=== PATIENT | male | born 1965 | race Caucasian/White ===

== ENCOUNTER → 2020-04-28 09:48 | Outpatient (CLI) | payer OTHER, MEDICAID, SELFPAY ==
--- NOTE | 2020-04-28 10:13 | DI.RAD.S_ITS ---
PROCEDURE: XR CHEST 2V INDICATIONS: R sided wheezing, SOB TECHNIQUE: 2 views of the chest were acquired. COMPARISON: [facility], CR, XR CHEST 1VW (PORTABLE), 03/28/2016, 14:31. FINDINGS: Surgical changes and devices: None. Lungs and pleura: Mild pleural thickening along the minor fissure bilaterally. Lungs are otherwise clear. There is a linear lucency along the right hemidiaphragm. No pleural effusions or pneumothorax. Mediastinum: Mediastinal contours are normal. Heart size is normal. Bones and chest wall: No suspicious bony abnormalities. Soft tissues appear unremarkable. IMPRESSION: 1. Lucency along the right hemidiaphragm, uncertain clinical significance. If clinically indicated, chest CT may be helpful. 2. Mild pleural thickening along the minor fissure. No acute infiltrate or consolidation. Dictated by: Tiara Atkinson M.D. on 04/28/2020 at 10:29 Approved by: Tiara Atkinson M.D. on 04/28/2020 at 10:32
[2020-04-28 10:16] LABS: COVID19 -Nasal RAPID Negative (Negative)
== END ==
LOC: LAB 10:13 → RAD 10:29
PROVIDERS: Referring Provider Nurse Practitioner; Visit Provider Nurse Practitioner
DX: R06.02 Shortness of breath (principal); R06.2 Wheezing; Z20.822 Contact with and (suspected) exposure to COVID-19
CPT/HCPCS: 71046; 87635

== ENCOUNTER → 2021-10-18 10:42 | Outpatient (CLI) | payer OTHER, MEDICAID, SELFPAY ==
--- NOTE | 2021-10-18 10:47 | DI.RAD.S_ITS ---
PROCEDURE: XR RIBS BI 3V INDICATIONS: RIB PAIN TECHNIQUE: 2 views of the left and right ribs were acquired. COMPARISON: Chest x-ray two view, 04/28/2020. FINDINGS: Surgical changes and devices: None. Bones and chest wall: There are mildly displaced left inferior rib fractures involving the posterior lateral aspect of the left 10th and 11th ribs. No displaced right rib fracture. No suspicious bony lesions. Overlying soft tissues appear unremarkable. Lungs and pleura: The visualized lung appears clear. No pleural effusions or pneumothorax are visible. IMPRESSION: 1. Mildly displaced left 10th and 11th rib fractures of uncertain chronicity. 2. No displaced right rib fractures. Dictated by: Tiara Atkinson M.D. on 10/18/2021 at 17:32 Approved by: Tiara Atkinson M.D. on 10/18/2021 at 17:36
[2021-10-18 11:22] LABS: Add Manual Diff / Slide Review NO; Basophils Absolute Auto 100 /uL (0-100); Basophils Percent Auto 0.6 % (0-2); Eosinophils Absolute Auto 0 /uL (0-450); Eosinophils Percent Auto 0.5 % (2-4); Hematocrit 39.4 % (41-53); Hemoglobin 13.5 g/dL (13.5-17.5); Lymphocytes Absolute Auto 1300 /uL (1100-4500); Mean Corpuscular HGB Conc 34.1 % (30-36); Mean Corpuscular Hemoglobin 32.5 PG (26-34); Mean Corpuscular Volume 95.2 fL (80-100); Monocytes Absolute Auto 1500 /uL (0-900); Monocytes Percent Auto 16.9 % (3-14); Neutrophils Absolute Auto 6200 /uL (1500-7000); Platelet Count 306 X10^3/uL (150-400); Red Blood Cell Count 4.14 X10^6/uL (4.5-5.9); Red Cell Distribution Width 17.3 % (11.6-14.8); White Blood Cell Count 9.1 X10^3/uL (4.5-11.0)
[2021-10-18 11:44] LABS: Alanine Aminotransferase 49 IU/L (<50); Albumin 4.2 g/dL (3.5-5.0); Albumin Globulin Ratio 1.4 (1.0-2.8); Alkaline Phosphatase 102 U/L (38-126); Aspartate Aminotransferase 36 IU/L (17-59); BUN Creatinine Ratio 22.4 (6-22); Bilirubin Total 0.6 mg/dL (0.2-1.3); Blood Urea Nitrogen 17 mg/dL (9-20); Calcium 9.3 mg/dL (8.4-10.2); Carbon Dioxide 34 mmol/L (22-32); Chloride 97 mmol/L (98-107); Estimated Glomerular Filt Rate > 60 mL/min (>60); Globulin 3.1 g/dL (1.7-4.1); Glucose 120 mg/dL (70-100); HEMOLYSIS < 15 (0-50); Potassium 3.4 mmol/L (3.4-5.1); Sodium 136 mmol/L (137-145); Total Protein 7.3 g/dL (6.3-8.2)
== END ==
PROVIDERS: Referring Provider Physician Assistant; Visit Provider Physician Assistant
DX: R07.81 Pleurodynia (principal); R05.1 Acute cough; Z71.41 Alcohol abuse counseling and surveillance of alcoholic; S22.42XA Multiple fractures of ribs, left side, initial encounter for closed fracture
CPT/HCPCS: 36415; 71111; 80053; 85025

== ENCOUNTER → 2021-11-04 16:18 | Outpatient (CLI) | payer OTHER, MEDICAID, SELFPAY ==
[2021-11-04 17:01] LABS: Alanine Aminotransferase 17 IU/L (<50); Albumin 4.5 g/dL (3.5-5.0); Albumin Globulin Ratio 1.3 (1.0-2.8); Alkaline Phosphatase 104 U/L (38-126); Aspartate Aminotransferase 21 IU/L (17-59); Bilirubin Total 0.4 mg/dL (0.2-1.3); Bilirubin Unconjugated 0.2 mg/dL (0.0-1.1); Globulin 3.4 g/dL (1.7-4.1); HEMOLYSIS < 15 (0-50); Total Protein 7.9 g/dL (6.3-8.2)
== END ==
PROVIDERS: PCP Physician Assistant; Referring Provider Physician Assistant; Visit Provider Physician Assistant
DX: Z71.41 Alcohol abuse counseling and surveillance of alcoholic (principal)
CPT/HCPCS: 36415; 80076

== ENCOUNTER 2021-12-05 15:18 | Emergency (ER) | payer OTHER, MEDICAID, SELFPAY ==
[2021-12-05] VITALS (15 sets, daily range): BP systolic 179–226; BP diastolic 88–107; PULSE 95–118; RESP 26–37; TEMP 36.4; O2SAT 93–99
--- NOTE | 2021-12-05 15:18 | DI.CT.S_ITS ---
PROCEDURE: CT HEAD/BRAIN WO CON INDICATIONS: syncope seizure TECHNIQUE: Noncontrast 4.5 mm thick angled axial sections acquired from the foramen magnum to the vertex, with coronal and sagittal reformats. For radiation dose reduction, the following was used: automated exposure control, adjustment of mA and/or kV according to patient size. COMPARISON: None. FINDINGS: Image quality: Excellent. CSF spaces: Basal cisterns are patent. No extra-axial fluid collections. The ventricles are symmetric in size and shape. Brain: No intracranial bleeds or masses. There are old lacunar infarcts in basal ganglia bilaterally. Old or late subacute infarct in the right parietal white matter. There is mild cerebral volume loss for age, with resultant ventricular and sulcal prominence. There are moderate periventricular and deep white matter chronic small vessel ischemic changes. There is intracranial internal carotid artery atherosclerosis. Skull and face: Calvarium and visualized facial bones appear intact, without suspicious lesions. There is a small left frontal subscalp hematoma. Sinuses: Visualized sinuses and mastoids are clear. IMPRESSION: 1. No acute intracranial abnormalities. 2. Old lacunar infarcts in basal ganglia bilaterally. Suspect old or late subacute lacunar infarct in the right parietal white matter. If clinically indicated, MRI with and without contrast is recommended for follow-up evaluation. 3. Mild cerebral volume loss and moderate chronic microvascular ischemic changes. 4. Small right frontal subscalp hematoma. Dictated by: Tiara Atkinson M.D. on 12/05/2021 at 15:46 Approved by: Tiara Atkinson M.D. on 12/05/2021 at 15:50
--- NOTE | 2021-12-05 15:18 | DI.CT.S_ITS ---
PROCEDURE: CT FACIAL BONES WO CON INDICATIONS: syncope seizure TECHNIQUE: Noncontrast 2.5 mm thick axial images acquired from the mandible through the frontal sinuses, with coronal and sagittal reformatting. For radiation dose reduction, the following was used: automated exposure control, adjustment of mA and/or kV according to patient size. COMPARISON: [facility], CT, CT HEAD/BRAIN WO CON, 12/05/2021, 15:26. FINDINGS: Image quality: There are motion artifacts. Bones and teeth: Nondisplaced nasal bone fractures are seen bilaterally with mild displacement. There is mildly displaced fracture of the nasal septum. The mandible appears intact. There is bilateral anterior subluxation of the mandibular condyles at the temporomandibular joint. Orbital betancourt are intact. Sinus betancourt show no fracture or deformity. Zygomatic arches are intact. Pterygoid plates are intact. Visualized portions of the skull base and auditory canals are intact. Sinuses: Mild bilateral maxillary sinus mucosal thickening. There is a polyp or mucous retention cyst in the left maxillary sinus. Mastoid air cells are aerated. Soft tissues: No edema, masses, or fluid collections. No enlarged lymph nodes. No soft tissue lacerations or debris. Vascular: Visualized vascular structures appear normal in the absence of contrast. Bony vascular foramina and canals are intact. IMPRESSION: 1. Bilateral nasal bone fractures and nasal septum fracture. 2. Mild anterior subluxation of the mandibular condyles bilaterally at the temporomandibular joints. 3. Mild maxillary sinus mucosal thickening. There is a polyp or mucous retention cyst in the left maxillary sinus. Dictated by: Tiara Atkinson M.D. on 12/05/2021 at 15:59 Approved by: Tiara Atkinson M.D. on 12/05/2021 at 16:06
--- NOTE | 2021-12-05 15:18 | DI.CT.S_ITS ---
PROCEDURE: CT CERVICAL SPINE WO CON INDICATIONS: syncope seizure TECHNIQUE: Noncontrast 3 mm thick sections acquired from the skull base to the T4 level. Sagittal and coronal reformats were then constructed. For radiation dose reduction, the following was used: automated exposure control, adjustment of mA and/or kV according to patient size. COMPARISON: None. FINDINGS: Image quality: There are motion artifacts. Bones: No fractures or dislocations. Degenerative disc disease, moderate at C5-C6, mild at C4-C5 and C6-C7. Bilateral facet arthropathy, most pronounced at C3-C4, C4-C5 and C5-C6 on the left. Visualized superior ribs are intact. Soft tissues: Prevertebral soft tissues are normal in thickness. No paravertebral hematomas. No apical pneumothoraces. IMPRESSION: 1. No acute cervical spine fractures. 2. Degenerative disc and facet disease in cervical spine. Dictated by: Tiara Atkinson M.D. on 12/05/2021 at 15:50 Approved by: Tiara Atkinson M.D. on 12/05/2021 at 15:53
--- NOTE | 2021-12-05 15:20 | DI.RAD.S_ITS ---
PROCEDURE: XR CHEST 1V INDICATIONS: fall TECHNIQUE: One view of the chest was acquired. COMPARISON: [facility], CT, CT CERVICAL SPINE WO CON, 12/05/2021, 15:26. [facility], CR, XR CHEST 2V, 04/28/2020, 10:19. FINDINGS: Surgical changes and devices: None. Lungs and pleura: Lower lung volumes. Lungs appear clear. No pleural effusions or pneumothorax. Mediastinum: Mediastinal contours appear normal. Heart size is normal. Bones and chest wall: No suspicious bony lesions. Overlying soft tissues appear unremarkable. IMPRESSION: No acute cardiopulmonary abnormality identified. Dictated by: Blake Thakkar M.D. on 12/05/2021 at 16:06 Approved by: Blake Thakkar M.D. on 12/05/2021 at 16:08
--- NOTE | 2021-12-05 15:36 | ED_ITS ---
HPI - Syncope General Chief Complaint: Altered Mental Status Stated Complaint: Found down on sidewalk Time Seen by Provider: 12/05/21 15:18 Source: EMS Mode of arrival: EMS Limitations: altered mental status History of Present Illness HPI narrative: Patient is a 56-year-old male history of alcohol abuse hypertension tobacco abuse presenting today after syncopal episode. He apparently walked into his PCPs office for possibly an appointment and then walked out they saw him fall flat on his face. Possible seizure activity. Medics report that he is very confused he has multiple abrasions on his head and his face. Unable to follow commands. Not able to provide any history. Related Data Home Medications Medication Instructions Recorded Confirmed lisinopril PO 04/28/20 04/28/20 velaxafine PO 04/28/20 04/28/20 Previous Rx's Medication Instructions Recorded albuterol sulfate 90 mcg/actuation 2 puff inhalation Q4-6H PRN 04/28/20 aerosol inhaler shortness of breath or wheezing #8.5 grams inhalational spacing device (Avinash #1 ea 04/28/20 Aerosol [place] Enhancer spacer) chlordiazepoxide HCl 25 mg capsule 25 mg PO Q12H #12 caps 12/05/21 diazepam 5 mg tablet (Valium) 5 mg PO BID PRN alcohol withdrawal 12/06/21 #10 tabs ondansetron 4 mg disintegrating 4 mg PO Q8H PRN nausea and 12/06/21 tablet vomiting #10 tabs potassium chloride 20 mEq 20 meq PO DAILY 10 days #10 tabs 12/06/21 tablet,extended release(part/cryst) (Klor-Con M) Allergies Allergy/AdvReac Type Severity Reaction Status Date / Time No Known Drug Allergies Allergy Verified 12/05/21 15:29 Review of Systems Review of Systems ROS Unobtainable: Unobtainable due to medical condition Patient History Medical History No significant medical problems Social History Smoking Status: Current every day smoker Smoking Status: Current every day smoker alcohol intake frequency: 3 or more drinks per day Alcohol type: hard liquor Exam Initial Vital Signs Initial Vital Signs: Vital Signs Pulse Rate 118 H 12/05/21 15:23 Respiratory Rate 36 H 12/05/21 15:23 Pulse Oximetry 97 12/05/21 15:23 Oxygen Delivery Method 12/05/21 15:23 GENERAL: Alert confused agitated 56-year-old male HEENT: Head multiple forehead abrasions dry blood all over no obvious tongue laceration EOMI NECK: Supple, full range of motion, no step-offs, nontender on vertebrae CARDIOVASCULAR: Regular rate and rhythm without murmurs, rubs or gallops. RESPIRATORY: Breath sounds equal bilaterally, no wheezes rales or rhonchi. No crepitations, no subcutaneous air, chest is nontender, no signs of trauma ABDOMEN: Soft, nontender. Normoactive bowel sounds all 4 quadrants. No gua rding or rebound. EXTREMITIES: Normal range of motion, no clubbing or edema. Right upper extremity: Within normal limits Left upper extremity: Within normal limits Right lower extremity: Within normal limits Left lower extremity:Within normal limits NEUROLOGICAL: Cranial nerves II through XII grossly intact. Normal gait and speech. SKIN: Facial abrasions Course Orders Ordered: Discontinued Medications Sodium Chloride (Normal Saline 0.9%) 1,000 mls @ 150 mls/hr IV CONT KUMAR Last Infusion: 12/05/21 17:49 Dose: 0 mls/hr Documented By: Admin: 12/05/21 16:04 Dose: 150 mls/hr Documented By: KENIA Phenobarbital (Phenobarbital 65 Mg/Ml Vial) 260 mg IV NOW ONE Stop: 12/05/21 17:18 Last Admin: 12/05/21 17:55 Dose: 260 mg Documented By: KENIA Vital Signs Vital signs: Vital Signs - 8 hr 12/05/21 15:27 12/05/21 15:23 12/05/21 15:36 Temperature 97.6 F Pulse Rate 118 H 114 H Respiratory Rate 36 H 32 H Blood Pressure Pulse Oximetry 97 Oxygen Delivery Method Room Air 12/05/21 15:39 12/05/21 15:40 12/05/21 15:40 Temperature Pulse Rate 112 H 110 H Respiratory Rate 35 H 37 H Blood Pressure 226/107 H Pulse Oximetry 99 93 Oxygen Delivery Method Room Air 12/05/21 16:00 12/05/21 16:00 12/05/21 16:30 Temperature Pulse Rate 109 H Respiratory Rate 34 H Blood Pressure 199/100 H 215/99 H Pulse Oximetry 98 Oxygen Delivery Method 12/05/21 16:30 12/05/21 17:00 12/05/21 17:01 Temperature Pulse Rate 103 H 111 H 115 H Respiratory Rate 33 H 33 H 31 H Blood Pressure Pulse Oximetry Oxygen Delivery Method 12/05/21 17:01 12/05/21 17:30 12/05/21 17:31 Temperature Pulse Rate 104 H Respiratory Rate 27 H Blood Pressure 184/88 H 209/93 H Pulse Oximetry Oxygen Delivery Method 12/05/21 17:31 12/05/21 18:00 12/05/21 18:01 Temperature Pulse Rate 106 H 107 H Respiratory Rate 30 H 27 H Blood Pressure 179/105 H Pulse Oximetry Oxygen Delivery Method 12/05/21 18:01 Temperature Pulse Rate 107 H Respiratory Rate 28 H Blood Pressure Pulse Oximetry Oxygen Delivery Method MDM - Syncope Lab Data Result diagrams: 12/05/21 15:48 12/05/21 15:48 Labs: Lab Results 12/05/21 12/05/21 12/05/21 Range/Units 15:48 15:48 15:48 WBC 13.4 H (4.5-11.0) X10^3/uL RBC 4.12 L (4.5-5.9) X10^6/uL Hgb 13.4 L (13.5-17.5) g/dL Hct 39.2 L (41-53) % MCV 95.2 (80-100) fL MCH 32.4 (26-34) PG MCHC 34.0 (30-36) % RDW 16.1 H (11.6-14.8) % Plt Count 359 (150-400) X10^3/uL Neut % (Auto) 82.0 H (50-75) % Lymph % (Auto) 11.0 L (25-40) % [place] % (Auto) 6.3 (3-14) % Eos % (Auto) 0.1 L (2-4) % Baso % (Auto) 0.6 (0-2) % Neut # (Auto) 64968 H (5577-6982) /uL Lymph # (Auto) 1500 (5339-6491) /uL [place] # (Auto) 900 (0-900) /uL Eos # (Auto) 0 (0-450) /uL Baso # (Auto) 100 (0-100) /uL PT 12.1 (10.1-12.7) SECONDS INR 1.1 (0.9-1.3) Sodium (137-145) mmol/L Potassium (3.4-5.1) mmol/L Chloride (98-107) mmol/L Carbon Dioxide (22-32) mmol/L BUN (9-20) mg/dL Creatinine (0.66-1.25) mg/dL Estimated GFR (>60) mL/min BUN/Creatinine Ratio (6-22) Glucose (70-100) mg/dL Lactate (0.7-2.1) mmol/L Calcium (8.4-10.2) mg/dL Total Bilirubin (0.2-1.3) mg/dL AST (17-59) IU/L ALT (<50) IU/L Alkaline Phosphatase (38-126) U/L Total Creatine Kinase 237 H (55-170) U/L CK-MB (CK-2) 2.48 H (<2.37) ng/mL CK-MB (CK-2) Rel Index 1.0 L (1.5-5.0) % Troponin I < 0.012 (0.01-0.034) ng/mL Total Protein (6.3-8.2) g/dL Albumin (3.5-5.0) g/dL Globulin (1.7-4.1) g/dL Albumin/Globulin Ratio (1.0-2.8) Lipase 190 (23-300) U/L Prolactin (3.7-17.9) ng/mL Salicylates (<20) mg/dL U Opiates 300ng/mL cut (Negative) Ur Oxycodone Screen (Negative) Urine Methadone Screen (Negative) Acetaminophen (10-30) ug/mL Ur Barbiturates Screen (Negative) U Tricyclic Antidepress (Negative) Ur Phencyclidine Scrn (Negative) Ur Amphetamines Screen (Negative) U Methamphetamines Scrn (Negative) Ur MDMA Scrn (Ecstasy) (Negative) U Benzodiazepines Scrn (Negative) Urine Cocaine Screen (Negative) U Marijuana (THC) Screen (Negative) Ethyl Alcohol ( - 10) mg/dL 12/05/21 12/05/21 12/05/21 Range/Units 15:48 15:48 15:48 WBC (4.5-11.0) X10^3/uL RBC (4.5-5.9) X10^6/uL Hgb (13.5-17.5) g/dL Hct (41-53) % MCV (80-100) fL MCH (26-34) PG MCHC (30-36) % RDW (11.6-14.8) % Plt Count (150-400) X10^3/uL Neut % (Auto) (50-75) % Lymph % (Auto) (25-40) % [place] % (Auto) (3-14) % Eos % (Auto) (2-4) % Baso % (Auto) (0-2) % Neut # (Auto) (0603-2445) /uL Lymph # (Auto) (7690-0022) /uL [place] # (Auto) (0-900) /uL Eos # (Auto) (0-450) /uL Baso # (Auto) (0-100) /uL PT (10.1-12.7) SECONDS INR (0.9-1.3) Sodium 136 L (137-145) mmol/L Potassium 3.3 L (3.4-5.1) mmol/L Chloride 96 L (98-107) mmol/L Carbon Dioxide 26 (22-32) mmol/L BUN 14 (9-20) mg/dL Creatinine 0.66 (0.66-1.25) mg/dL Estimated GFR > 60 (>60) mL/min BUN/Creatinine Ratio 21.2 (6-22) Glucose 154 H (70-100) mg/dL Lactate 6.6 H* (0.7-2.1) mmol/L Calcium 8.8 (8.4-10.2) mg/dL Total Bilirubin 1.1 (0.2-1.3) mg/dL AST 31 (17-59) IU/L ALT 30 (<50) IU/L Alkaline Phosphatase 104 (38-126) U/L Total Creatine Kinase (55-170) U/L CK-MB (CK-2) (<2.37) ng/mL CK-MB (CK-2) Rel Index (1.5-5.0) % Troponin I (0.01-0.034) ng/mL Total Protein 7.7 (6.3-8.2) g/dL Albumin 4.4 (3.5-5.0) g/dL Globulin 3.3 (1.7-4.1) g/dL Albumin/Globulin Ratio 1.3 (1.0-2.8) Lipase (23-300) U/L Prolactin 40.6 H (3.7-17.9) ng/mL Salicylates < 1.0 (<20) mg/dL U Opiates 300ng/mL cut (Negative) Ur Oxycodone Screen (Negative) Urine Methadone Screen (Negative) Acetaminophen < 10 (10-30) ug/mL Ur Barbiturates Screen (Negative) U Tricyclic Antidepress (Negative) Ur Phencyclidine Scrn (Negative) Ur Amphetamines Screen (Negative) U Methamphetamines Scrn (Negative) Ur MDMA Scrn (Ecstasy) (Negative) U Benzodiazepines Scrn (Negative) Urine Cocaine Screen (Negative) U Marijuana (THC) Screen (Negative) Ethyl Alcohol < 10 ( - 10) mg/dL 12/05/21 12/05/21 Range/Units 16:58 17:45 WBC (4.5-11.0) X10^3/uL RBC (4.5-5.9) X10^6/uL Hgb (13.5-17.5) g/dL Hct (41-53) % MCV (80-100) fL MCH (26-34) PG MCHC (30-36) % RDW (11.6-14.8) % Plt Count (150-400) X10^3/uL Neut % (Auto) (50-75) % Lymph % (Auto) (25-40) % [place] % (Auto) (3-14) % Eos % (Auto) (2-4) % Baso % (Auto) (0-2) % Neut # (Auto) (0183-0015) /uL Lymph # (Auto) (9819-5828) /uL [place] # (Auto) (0-900) /uL Eos # (Auto) (0-450) /uL Baso # (Auto) (0-100) /uL PT (10.1-12.7) SECONDS INR (0.9-1.3) Sodium (137-145) mmol/L Potassium (3.4-5.1) mmol/L Chloride (98-107) mmol/L Carbon Dioxide (22-32) mmol/L BUN (9-20) mg/dL Creatinine (0.66-1.25) mg/dL Estimated GFR (>60) mL/min BUN/Creatinine Ratio (6-22) Glucose (70-100) mg/dL Lactate 2.7 H (0.7-2.1) mmol/L Calcium (8.4-10.2) mg/dL Total Bilirubin (0.2-1.3) mg/dL AST (17-59) IU/L ALT (<50) IU/L Alkaline Phosphatase (38-126) U/L Total Creatine Kinase (55-170) U/L CK-MB (CK-2) (<2.37) ng/mL CK-MB (CK-2) Rel Index (1.5-5.0) % Troponin I (0.01-0.034) ng/mL Total Protein (6.3-8.2) g/dL Albumin (3.5-5.0) g/dL Globulin (1.7-4.1) g/dL Albumin/Globulin Ratio (1.0-2.8) Lipase (23-300) U/L Prolactin (3.7-17.9) ng/mL Salicylates (<20) mg/dL U Opiates 300ng/mL cut Negative (Negative) Ur Oxycodone Screen Negative (Negative) Urine Methadone Screen Negative (Negative) Acetaminophen (10-30) ug/mL Ur Barbiturates Screen Negative (Negative) U Tricyclic Antidepress Negative (Negative) Ur Phencyclidine Scrn Negative (Negative) Ur Amphetamines Screen Negative (Negative) U Methamphetamines Scrn Negative (Negative) Ur MDMA Scrn (Ecstasy) Negative (Negative) U Benzodiazepines Scrn Negative (Negative) Urine Cocaine Screen Negative (Negative) U Marijuana (THC) Screen Negative (Negative) Ethyl Alcohol ( - 10) mg/dL Imaging Data CT scan - head: Radiologist's Impression: ?Mk Ortez Sharad MR#: [id number] : 1965 Acct:[id number] Age/Sex: 56 / M Date of Service: 12/05/21 Loc: ED Accession Number: [id number] ?? Procedure: CT head/brain wo con Ordering Provider: Megan Alonso D.O. PROCEDURE:? CT HEAD/BRAIN WO CON ? INDICATIONS:? syncope seizure ? TECHNIQUE:? Noncontrast 4.5 mm thick angled axial sections acquired from the foramen magnum to the vertex, with coronal and sagittal reformats.? For radiation dose reduction, the following was used:? automated exposure control, adjustment of mA and/or kV according to patient size.? ? COMPARISON:? None. ? FINDINGS:? Image quality:? Excellent.? ? CSF spaces:? Basal cisterns are patent.? No extra-axial fluid collections.? The ventricles are symmetric in size and shape.? ? Brain:? No intracranial bleeds or masses.? There are old lacunar infarcts in basal ganglia bilaterally.? Old or late subacute infarct in the right parietal white matter.? There is mild cerebral volume loss for age, with resultant ventricular and sulcal prominence.? There are moderate periventricular and deep white matter chronic small vessel ischemic changes.? There is intracranial internal carotid artery atherosclerosis.? ? ? Skull and face:? Calvarium and visualized facial bones appear intact, without suspicious lesions.? There is a small left frontal subscalp hematoma. ? Sinuses:? Visualized sinuses and mastoids are clear.? ? IMPRESSION:? ? 1. No acute intracranial abnormalities. ? 2. Old lacunar infarcts in basal ganglia bilaterally.? Suspect old or late subacute lacunar infarct in the right parietal white matter. If clinically indicated, MRI with and without contrast is recommended for follow-up evaluation.? ? 3.? Mild cerebral volume loss and moderate chronic microvascular ischemic changes. ? 4. Small right frontal subscalp hematoma.? Dictated by: Tiara Atkinson M.D. on 12/05/2021 at 15:46 ? ? CT facial: Radiologist's Impression: CT Scan Report Signed Patient: Mk Ortez MR#: [id number] : 1965 Acct:[id number] Age/Sex: 56 / M Date of Service: 12/05/21 Loc: ED Accession Number: [id number] ?? Procedure: CT facial bones wo con Ordering Provider: Megan Alonso D.O. PROCEDURE:? CT FACIAL BONES WO CON ? INDICATIONS:? syncope seizure ? TECHNIQUE:? Noncontrast 2.5 mm thick axial images acquired from the mandible through the frontal sinuses, with coronal and sagittal reformatting.? For radiation dose reduction, the following was used:? automated exposure control, adjustment of mA and/or kV according to patient size.? ? COMPARISON:? [facility], CT, CT HEAD/BRAIN WO CON, 12/05/2021, 15:26. ? FINDINGS:? Image quality:? There are motion artifacts.? ? Bones and teeth:? Nondisplaced nasal bone fractures are seen bilaterally with mild displacement.? There is mildly displaced fracture of the nasal septum. ? The mandible appears intact.? There is bilateral anterior subluxation of the mandibular condyles at the temporomandibular joint.? ? Orbital betancourt are intact.? Sinus betancourt show no fracture or deformity.? Zygomatic arches are intact.? Pterygoid plates are intact.? Visualized portions of the skull base and auditory canals are intact.? ? Sinuses:? Mild bilateral maxillary sinus mucosal thickening.? There is a polyp or mucous retention cyst in the left maxillary sinus.? Mastoid air cells are aerated.? ? Soft tissues:? No edema, masses, or fluid collections.? No enlarged lymph nodes.? No soft tissue lacerations or debris.? ? Vascular:? Visualized vascular structures appear normal in the absence of contrast.? Bony vascular foramina and canals are intact.? ? IMPRESSION:? ? 1. Bilateral nasal bone fractures and nasal septum fracture. ? 2. Mild anterior subluxation of the mandibular condyles bilaterally at the temporomandibular joints. ? 3.? Mild maxillary sinus mucosal thickening.? There is a polyp or mucous retention cyst in the left maxillary sinus. ? ? ? Dictated by: Tiara Atkinson M.D. on 12/05/2021 at 15:59 ? CT - cervical spine: Radiologist's Impression: nt: Mk Ortez MR#: [id number] : 1965 Acct:[id number] Age/Sex: 56 / M Date of Service: 12/05/21 Loc: ED Accession Number: [id number] ?? Procedure: CT cervical spine wo con Ordering Provider: Megan Alonso D.O. PROCEDURE:? CT CERVICAL SPINE WO CON ? INDICATIONS:? syncope seizure ? TECHNIQUE:? Noncontrast 3 mm thick sections acquired from the skull base to the T4 level.? Sagittal and coronal reformats were then constructed.? For radiation dose reduction, the following was used:? automated exposure control, adjustment of mA and/or kV according to patient size.? ? COMPARISON:? None. ? FINDINGS:? Image quality:? There are motion artifacts.? ? Bones:? No fractures or dislocations.? Degenerative disc disease, moderate at C5-C6, mild at C4-C5 and C6-C7.? Bilateral facet arthropathy, most pronounced at C3-C4, C4- C5 and C5-C6 on the left.? Visualized superior ribs are intact.? ? Soft tissues:? Prevertebral soft tissues are normal in thickness.? No paravertebral hematomas.? No apical pneumothoraces.? ? ? IMPRESSION:? ? 1. No acute cervical spine fractures. 2. Degenerative disc and facet disease in cervical spine.? Dictated by: Tiara Atkinson M.D. on 12/05/2021 at 15:50? Chest x-ray: Radiologist's Impression: XRay Report Signed Patient: Mk Ortez MR#: [id number] : 1965 Acct:[id number] Age/Sex: 56 / M Date of Service: 12/05/21 Loc: ED Accession Number: [id number] ?? Procedure: XR chest 1V Ordering Provider: Megan Alonso D.O. PROCEDURE:? XR CHEST 1V ? INDICATIONS:? fall ? TECHNIQUE:? One view of the chest was acquired.? ? COMPARISON:? [facility], CT, CT CERVICAL SPINE WO CON, 12/05/2021, 15:26.? [facility], CR, XR CHEST 2V, 04/28/2020, 10:19. ? FINDINGS:? ? Surgical changes and devices:? None.? ? Lungs and pleura:? Lower lung volumes.? Lungs appear clear.? No pleural effusions or pneumothorax.? ? Mediastinum:? Mediastinal contours appear normal.? Heart size is normal.? ? Bones and chest wall:? No suspicious bony lesions.? Overlying soft tissues appear unremarkable.? ? IMPRESSION:? No acute cardiopulmonary abnormality identified. ? ? ? Dictated by: Blake Thakkar M.D. on 12/05/2021 at 16:06 ? ? ECG Data Interpretation: Sinus tachycardia rate 108 NJ interval 126 QRS [address] changes MDM Narrative Medical decision making narrative: A syncopal episode. He is more awake and alert. He states he has not had and alcohol and 3 days trying to quit for work. He says he drinks a large bottle of whiskey over 2 days. Scroll lactate is quite elevated his lactic acid is also elevated. He was obviously postictal when he arrived and is now better. He is shaking as well. I recommended admission for him so that he does not have any alcohol withdrawal seizures along with monitoring for any a arrhythmias. At this time he is declining admission. He says that he has things he needs to do. We discussed how he can decrease his alcohol at home more safely. And he is given librium, he states he wants to stop and must or he will loose his job. The patient is clinically sober, free from distracting injury, appears to have intact insight, judgment and reason. Does not meet criteria for involuntary hospitalization. Patient has the capacity to make decisions. The patient is als o not under any duress to leave the hospital. In this scenario, it would be battery to subject the patient to treatment against his/her will. I have voiced my concerns for the patient's health given that a full evaluation and treatment had not occurred. I have discussed the need for continued evaluation to determine if there symptoms are caused by a condition that present risk of or morbidity. Risk including but not limited to , permanent disability, prolonged hospitalization, prolonged illness, were discussed. I tried offering alternative options in hopes that the patient might be amenable to partial evaluation and treatment which would be medically beneficial to the patient, though the patient declined my options and insisted on leaving. Because I have been unable to convince the patient to stay I answered all of their questions about the condition and ask them to return to the ED as soon as possible to complete their evaluation, especially if their symptoms worsen or do not improve. I emphasized that leaving against medical advice did not preclude returning here for further evaluation. I asked the patient to return if they change their mind about the further evaluation and treatment. I strongly encouraged the patient to return to this emergency department or any emergency department at any time, particularly with worsening symptoms. Discharge Plan Departure Patient Disposition: Left Against Medical Advice Clinical Impression: Alcohol withdrawal seizure Instructions: Alcohol Withdrawal Activity Restrictions/Additional Instructions: YOU ARE LEAVING AGAINST MEDICAL ADVICE IT WAS STRONGLY RECOMMENDED THAT YOU STAY IN THE HOSPITAL FOR SEIZURE PRECAUTION *You have been diagnosed with ALCOHOL WITHDRAWAL SEIZURE *What to do: *Continue to take medications as directed Librium 25 mg 3 times a day for 2 days, 1 tablet twice a day for 2 days, 1 tablet once a day for 2 days --> SENT TO [facility] *Follow up with your primary care provider in 2-3 days or call [phone] *Return to ER if you should have recurrent seizure, tremors hallucinations or any new, worsening or concerning symptoms Prescriptions: New chlordiazepoxide HCl 25 mg capsule 25 mg PO Q12H Qty: 12 0RF Rx Instructions: 1 tablet 3 times a day for 2 days, 1 tablet twice a day for 2 days, 1 tablet once a day for 2 days. No Action lisinopril PO velaxafine PO albuterol sulfate 90 mcg/actuation HFA aerosol inhaler 2 puff inhalation Q4-6H PRN (Reason: shortness of breath or wheezing) Qty: 8.5 0RF (DME) Avinash Aerosol [place] Enhancer Spacer See Rx Instructions .ROUTE .MEDSUPPLY Qty: 1 0RF Rx Instructions: As directed diazepam [Valium] 5 mg tablet 5 mg PO BID PRN (Reason: alcohol withdrawal) Qty: 10 0RF potassium chloride [Klor-Con M20] 20 mEq tablet,ER particles/crystals 20 meq PO DAILY 10 Days Qty: 10 0RF Rx Instructions: Take with food and water ondansetron 4 mg tablet,disintegrating 4 mg PO Q8H PRN (Reason: nausea and vomiting) Qty: 10 0RF Referrals: Rachelle Nielsen PA-C [Primary Care Provider] - Stand Alone Forms: Against Medical Advice
[2021-12-05 16:01] LABS: Add Manual Diff / Slide Review NO; Basophils Absolute Auto 100 /uL (0-100); Basophils Percent Auto 0.6 % (0-2); Eosinophils Absolute Auto 0 /uL (0-450); Eosinophils Percent Auto 0.1 % (2-4); Hematocrit 39.2 % (41-53); Hemoglobin 13.4 g/dL (13.5-17.5); Lymphocytes Absolute Auto 1500 /uL (1100-4500); Mean Corpuscular Hemoglobin 32.4 PG (26-34); Mean Corpuscular Volume 95.2 fL (80-100); Monocytes Absolute Auto 900 /uL (0-900); Monocytes Percent Auto 6.3 % (3-14); Neutrophils Absolute Auto 11000 /uL (1500-7000); Platelet Count 359 X10^3/uL (150-400); Red Blood Cell Count 4.12 X10^6/uL (4.5-5.9); Red Cell Distribution Width 16.1 % (11.6-14.8); White Blood Cell Count 13.4 X10^3/uL (4.5-11.0)
[2021-12-05] MEDS: SODIUM CHLORIDE 0.9% 1,000 ML 150 ML IV (16:04)
[2021-12-05 16:05] LABS: INR 1.1 (0.9-1.3); Prothrombin Time 12.1 SECONDS (10.1-12.7)
[2021-12-05 16:10] LABS: Acetaminophen < 10 ug/mL (10-30); Albumin 4.4 g/dL (3.5-5.0); Albumin Globulin Ratio 1.3 (1.0-2.8); Alkaline Phosphatase 104 U/L (38-126); Aspartate Aminotransferase 31 IU/L (17-59); BUN Creatinine Ratio 21.2 (6-22); Bilirubin Total 1.1 mg/dL (0.2-1.3); Blood Urea Nitrogen 14 mg/dL (9-20); Calcium 8.8 mg/dL (8.4-10.2); Carbon Dioxide 26 mmol/L (22-32); Chloride 96 mmol/L (98-107); Creatine Kinase 237 U/L (55-170); Estimated Glomerular Filt Rate > 60 mL/min (>60); Ethanol (ETOH) < 10 mg/dL; Globulin 3.3 g/dL (1.7-4.1); Glucose 154 mg/dL (70-100); HEMOLYSIS < 15 (0-50); Lipase 190 U/L (23-300); Potassium 3.3 mmol/L (3.4-5.1); Salicylate < 1.0 mg/dL (<20); Sodium 136 mmol/L (137-145); Total Protein 7.7 g/dL (6.3-8.2)
[2021-12-05 16:12] LABS: Lactate (Lactic Acid) 6.6 mmol/L (0.7-2.1)
[2021-12-05 16:17] LABS: Alanine Aminotransferase 30 IU/L (<50)
[2021-12-05 16:21] LABS: Troponin I < 0.012 ng/mL (0.01-0.034)
[2021-12-05 16:26] LABS: Creatine Kinase MB 2.48 ng/mL (<2.37); Prolactin 40.6 ng/mL (3.7-17.9)
[2021-12-05 17:21] LABS: UR Morphine/Opiate cutoff 300 Negative (Negative); Ur Creatinine Normal (Normal); Ur Specific Gravity Normal (Normal); Urine Amphetamines Negative (Negative); Urine Barbiturates Negative (Negative); Urine Benzodiazepines Negative (Negative); Urine Cocaine Negative (Negative); Urine MDMA Negative (Negative); Urine Methadone Negative (Negative); Urine Methamphetamines Negative (Negative); Urine Oxycodone Negative (Negative); Urine Phencyclidine Negative (Negative); Urine Tetrahydrocannabinol Negative (Negative); Urine Tricyclic Antidepressant Negative (Negative); Urine pH Normal (Normal)
[2021-12-05 17:55] LABS: Reflexed Lactate in 2 Hours Y
[2021-12-05] MEDS: PHENobarbital 65 MG/ML VIAL 260 MG IV (17:55)
--- NOTE | 2021-12-05 18:10 | DI.RAD.S_ITS ---
PROCEDURE: XR HIP W PEL IF DONE LT 2V INDICATIONS: Fall TECHNIQUE: AP pelvis with lateral view(s) of the left hip(s). COMPARISON: [facility], CR, XR FEMUR 2+ VIEWS LEFT, 08/08/2017, 11:13. FINDINGS: Bones: No fractures identified. No dislocation. Pelvic ring appears intact. No suspicious bony lesions. 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 Soft tissues: The visualized bowel gas pattern is normal. No suspicious soft tissue calcifications. Barraza catheter. IMPRESSION: No fracture identified. If concern for occult fracture recommend CT bony pelvis. Dictated by: Blake Thakkar M.D. on 12/05/2021 at 19:08 Approved by: Blake Thakkar M.D. on 12/05/2021 at 19:10
[2021-12-05 18:19] LABS: Lactate 2HR (Lactic Acid Rflx) 2.7 mmol/L (0.7-2.1)
--- NOTE | 2021-12-05 18:31 | CM.SWNOTE ---
FLOOR STEWARD/STEWARDESS Assessment FLOOR STEWARD/STEWARDESS - Home Extension Agent Assessment FLOOR STEWARD/STEWARDESS/Home Extension Agent Assessment Time Spent with Patient Start date 12/05/21 Visit Start Time 17:55 End date 12/05/21 Visit End Time 18:05 Total time Care Management spent on 10 minutes patient visit-in minutes Substance Abuse Screening Include Onset, Duration, Intensity Presenting Problem Patient presents to ED via EMS found facedown on sidewalk after syncopal episode. Patient presents with multiple abrasions on face. Patient endorses he last drank 2-3 days ago and drank a big bottle of whiskey over the course of 3 days. Precipitating Event(s) Patient endorses he has been struggling with ETOH use and hx of sobriety within the last 7 years. Patient endorses that he does not want his boss to know about his drinking. Patient Strengths Patient endorses he has quit drinking cold turkey twice before and sustained sobriety before. Current Behavioral Health Provider(s) None reported Include Facility, Provider, Ph. # Family Hx of Behavioral Abuse None reported Rehab Facilities? ((Date(s), Location(s) Patient endorses hx of going ) to AA at [facility] with the [facility], patient denies that he intends to go back. History of Withdrawal? Seizures? Patient denies hx of seizures and states he has a hx of cold sweats, patient endorses current cold sweats. Longest Period of Sobriety 3 years Psychosocial information & Support Patient is 56 y/o male who Systems resides in [place]. Patient denies family supports but states his boss is someone who worries about him. School/Work Patient endorses he works at [employer] (a [employer]). Legal Concerns Legal Matters - Outstanding Issues None reported Mental Status Orientation (Person/Place/Time) A/Ox4 Stated Mood weak Affect (Congruent with Mood?) euthymic, full range, congruent with mood. Thought Content - Specify/Describe None reported Obsessions, Delusions, Hallucinations Thought Processes (Byuqime-Oqfuudrj-Efbp fairly coherent, focused on Oefdpcda-Migliegi-Ajxtozwapr- wanting to leave. Ciywtqbaxnqfln-Liwritv-Zqrksvjpowmq- Thought Blocking) Speech (Fprpnp-Rpsr-Wbycrvl-Rapid-Soft- normal, slightly slurred Loud-Pressured) Motor (Jgpzxt-Fyqyybxlv-Cvhc-Other) normal Insight (Jbrt-Bbeg-Tucl/Limited) fair/poor Judgement (Wgxq-Fckn-Mxaw/Limited) fair/poor Impulse Control (Adequate-Impaired) adequate Memory (Czetnhstw-Awswmu-Vqepde, intact, not formally assessed Impaired-Intact) Concentration (Intact-Impaired) intact Attention (Intact-Impaired) intact Behavior (Appropriate-Inappropriate) appropriate Additional Comment patient presents as calm and communicative. Intervention Intervention FLOOR STEWARD/STEWARDESS enters room to meet with patient. Patient endorses his desire to leave this hospital to get his belongings and smoke a cigarette. Patient endorses his last drink was 2-3 days ago when he drank a bottle of whiskey over the course of three days. Patient endorses hx of cold sweat withdrawals but denies any previous hx of seizures. Per ED examination and medical assessment patient presents as postical after a syncope episode, most likely caused by ETOH withdrawals. Per ED provider, it is recommended that patient remain in hospital for further medical observation and treatment. Patient continues to endorses to this FLOOR STEWARD/STEWARDESS that he wants to go home. Patient denies agreement to stay in hospital but agrees to treatment as needed in the ED. FLOOR STEWARD/STEWARDESS offers [facility] resources and detox information and patient denies need for any resources. Patient endorses he has been able to quit alcohol cold turkey on two occasions in the last 7 years and be sober for 2 and 3 years at a time. Patient endorses hx of utilizing AA but denies plans to utilize them due to his experience there. It is the opinion of this FLOOR STEWARD/STEWARDESS that patient would benefit from medical detox but patient denies to pursue this tx. FLOOR STEWARD/STEWARDESS to meet with patient again upon next ED encounter to discuss appropriate treatment options in further detail and assess patient safety. FLOOR STEWARD/STEWARDESS reviews the above with ED provider Dr. Alonso who indicates understanding and agreement. Patient plans to leave AMA after tx in ED. Plan RA Plan Patient endorses his plan to leave the ED against medical advice DEBO Garber
== END 2021-12-05 19:08 | disposition left against medical advice (07) ==
PROVIDERS: Emergency Provider Emergency Medicine; PCP Physician Assistant
DX: R56.9 Unspecified convulsions (principal); F10.939 Alcohol use, unspecified with withdrawal, unspecified
CPT/HCPCS: 36415; 70450; 70486; 71045; 72125; 73502; 80053; 80305; 80320; 80329; 82550; 82553; 83605; 83690; 84146; 84484; 85025; 85610; 93005; 93010; 96361; 96374; 99284; G0480; J2560

== ENCOUNTER 2021-12-06 14:32 | Emergency (ER) | payer OTHER, MEDICAID, SELFPAY ==
[2021-12-06] VITALS (8 sets, daily range): BP systolic 146–166; BP diastolic 71–86; PULSE 79–110; RESP 23–34; TEMP 36.9; O2SAT 95–99
[2021-12-06] MEDS: SODIUM CHLORIDE 0.9% 1,000 ML 1000 ML IV ×2 (15:15→18:36)
[2021-12-06] MEDS: PHENobarbital 65 MG/ML VIAL 260 MG IV (15:15)
[2021-12-06 15:18] LABS: Add Manual Diff / Slide Review NO; Basophils Absolute Auto 100 /uL (0-100); Basophils Percent Auto 0.5 % (0-2); Eosinophils Absolute Auto 0 /uL (0-450); Eosinophils Percent Auto 0.1 % (2-4); Hematocrit 36.3 % (41-53); Hemoglobin 12.6 g/dL (13.5-17.5); Lymphocytes Absolute Auto 800 /uL (1100-4500); Lymphocytes Percent Auto 6.8 % (25-40); Mean Corpuscular HGB Conc 34.9 % (30-36); Mean Corpuscular Hemoglobin 32.9 PG (26-34); Mean Corpuscular Volume 94.4 fL (80-100); Monocytes Absolute Auto 800 /uL (0-900); Monocytes Percent Auto 6.6 % (3-14); Neutrophils Absolute Auto 10600 /uL (1500-7000); Platelet Count 350 X10^3/uL (150-400); Red Blood Cell Count 3.84 X10^6/uL (4.5-5.9); Red Cell Distribution Width 16.7 % (11.6-14.8); White Blood Cell Count 12.3 X10^3/uL (4.5-11.0)
[2021-12-06 15:31] LABS: Albumin 4.2 g/dL (3.5-5.0); Albumin Globulin Ratio 1.3 (1.0-2.8); Alkaline Phosphatase 104 U/L (38-126); Aspartate Aminotransferase 42 IU/L (17-59); BUN Creatinine Ratio 12.7 (6-22); Bilirubin Total 1.1 mg/dL (0.2-1.3); Blood Urea Nitrogen 15 mg/dL (9-20); Calcium 8.8 mg/dL (8.4-10.2); Carbon Dioxide 25 mmol/L (22-32); Chloride 95 mmol/L (98-107); Estimated Glomerular Filt Rate > 60 mL/min (>60); Globulin 3.2 g/dL (1.7-4.1); Glucose 161 mg/dL (70-100); HEMOLYSIS < 15 (0-50); Potassium 3.1 mmol/L (3.4-5.1); Sodium 131 mmol/L (137-145); Total Protein 7.4 g/dL (6.3-8.2)
[2021-12-06 15:38] LABS: Alanine Aminotransferase 30 IU/L (<50)
[2021-12-06 16:04] LABS: Lipase 173 U/L (23-300)
[2021-12-06 16:05] LABS: Magnesium 1.4 mg/dL (1.6-2.3)
--- NOTE | 2021-12-06 16:15 | ED_ITS ---
HPI - Anxiety <Nazia Potts, [facility] - Last Filed: 12/07/21 07:20> General Chief Complaint: Toxicology Problem Stated Complaint: ETOH SEIZURE, FALL, HIT HEAD, ON BLOOD THINNERS, Time Seen by Provider: 12/06/21 15:02 Source: patient Mode of arrival: Wheelchair History of Present Illness HPI narrative: Patient is a 56 year male with history alcohol abuse, hypertension, tobacco use and was seen in the emergency department yesterday for alcohol withdrawal after a seizure was witnessed standard. Patient reports that today is day 4 since his last drink of alcohol, yesterday in the emergency department he received phenobarbital 260 mg IV x1, he left Against Medical Advice after he was told that it would be good to admit him to the hospital. He returns today saying that he knows this was a bad idea and he just wanted a cigarette and to go to work today and make some money. 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 He has a small right frontal sub scalp hematoma without bleeding. CT of his face shows bilateral nasal bone fractures, nasal septum fracture,, mild anterior subluxation of the mandibular condyles bilaterally at the temporomandibular joints, and mild maxillary sinus mucosal thickening. Patient reports that his left hip still hurts pretty bad today, states that it feels dislocated. Related Data Home Medications Medication Instructions Recorded Confirmed lisinopril PO 04/28/20 04/28/20 velaxafine PO 04/28/20 04/28/20 Previous Rx's Medication Instructions Recorded albuterol sulfate 90 mcg/actuation 2 puff inhalation Q4-6H PRN 04/28/20 aerosol inhaler shortness of breath or wheezing #8.5 grams inhalational spacing device (Avinash #1 ea 04/28/20 Aerosol [place] Enhancer spacer) chlordiazepoxide HCl 25 mg capsule 25 mg PO Q12H #12 caps 12/05/21 diazepam 5 mg tablet (Valium) 5 mg PO BID PRN alcohol withdrawal 12/06/21 #10 tabs ondansetron 4 mg disintegrating 4 mg PO Q8H PRN nausea and 12/06/21 tablet vomiting #10 tabs potassium chloride 20 mEq 20 meq PO DAILY 10 days #10 tabs 12/06/21 tablet,extended release(part/cryst) (Klor-Con M) Allergies Allergy/AdvReac Type Severity Reaction Status Date / Time No Known Drug Allergies Allergy Verified 12/05/21 15:29 Review of Systems <CARYL Azevedo - Last Filed: 12/07/21 07:20> Review of Systems Narrative: General: denies fever, chills, endorses having tremors and feeling anxious Head/Neck: denies headache, neck pain Eyes: denies visual changes, eye pain Cardio: denies chest pain, palpitations Respiratory: denies shortness of breath, cough GI: denies abdominal pain, nausea, vomiting, or diarrhea : denies dysuria, hematuria or flank pain MSK: denies new joint pain, muscle weakness or swelling Skin: denies rash, itching or new wound, patient has an abrasion on his left forehead Neuro: denies numbness, tingling, dizziness Patient History <CARYL Azevedo - Last Filed: 12/07/21 07:20> Medical History No significant medical problems Social History Smoking Status: Current every day smoker Smoking Status: Current every day smoker alcohol intake frequency: 3 or more drinks per day Alcohol type: hard liquor Substance Use Type: does not use Exam <CARYL Azevedo - Last Filed: 12/07/21 07:20> Narrative Exam Narrative: Independently reviewed vitals signs and nursing notes. General: comfortable, in no acute distress, multiple abrasions on face, tremulous, anxious but calm and cooperative Head: Abrasion to left forehead, symmetrical facial expressions Neck: supple Eyes: equal round and reactive, EOMI, conjunctiva normal without nystagmus Nose: nares patent, no rhinorrhea Mouth/Throat: moist mucus membranes Cardiovascular: Initially, tachycardic rate and regular rhythm, after 1 L of normal saline, his heart rate came down to the 90s and later the 80s, no peripheral edema, warm extremities Respiratory: normal effort, able to speak in complete sentences, no audible wheezing, stridor, or rales. No retractions or tachypnea. GI: abdomen soft, nontender to palpation, nondistended, no masses, no exquisite tenderness with exam, without guarding or rebound. MSK: moves all extremities, neurovascularly intact, no weakness, normal tone, with bilateral upper extremities extended he has tremors in both of his hands, tongue fasciculations, Skin: brisk capillary refill, no rash, no erythema Neuro: normal speech and cognition, A&O x3 Psych: mental status is grossly normal, congruent mood, normal affect, pleasant and cooperative Initial Vital Signs Initial Vital Signs: Vital Signs Temperature 98.4 F 12/06/21 14:50 Pulse Rate 110 H 12/06/21 14:50 Respiratory Rate 26 H 12/06/21 14:50 Pulse Oximetry 99 12/06/21 14:50 Oxygen Delivery Method 12/06/21 14:50 <Alicia Tse MD - Last Filed: 12/11/21 18:01> Initial Vital Signs Initial Vital Signs: Vital Signs Temperature 98.4 F 12/06/21 14:50 Pulse Rate 110 H 12/06/21 14:50 Respiratory Rate 26 H 12/06/21 14:50 Pulse Oximetry 99 12/06/21 14:50 Oxygen Delivery Method 12/06/21 14:50 Course <CARYL Azevedo - Last Filed: 12/07/21 07:20> Orders Ordered: Discontinued Medications Hydrocodone Bitart/Acetaminophen (Hydrocodone/Acet 5/325 Tablet) 1 tab PO NOW ONE Stop: 12/06/21 16:25 Last Admin: 12/06/21 16:32 Dose: 1 tab Documented By: PETER Diazepam (Diazepam 5 Mg Tablet) 10 mg PO NOW ONE Stop: 12/06/21 18:28 Last Admin: 12/06/21 18:37 Dose: 10 mg Documented By: PETER Sodium Chloride (Normal Saline 0.9%) 1,000 mls @ 1,000 mls/hr IV BOLUS ONE Stop: 12/06/21 15:59 Last Infusion: 12/06/21 18:13 Dose: 0 mls/hr Documented By: Admin: 12/06/21 15:15 Dose: 1,000 mls/hr Documented By: PETER Magnesium Sulfate (Magnesium Sulfate) 2 gm in 50 mls @ 50 mls/hr IV NOW ONE Stop: 12/06/21 17:14 Last Infusion: 12/06/21 17:43 Dose: 0 mls/hr Documented By: PETER Co-signed By: ATILIO Admin: 12/06/21 16:24 Dose: 50 mls/hr Documented By: PETER Co-signed By: ATILIO Sodium Chloride (Normal Saline 0.9%) 1,000 mls @ 1,000 mls/hr IV BOLUS ONE Stop: 12/06/21 19:35 Last Infusion: 12/06/21 19:22 Dose: 0 mls/hr Documented By: Admin: 12/06/21 18:36 Dose: 1,000 mls/hr Documented By: PETER Nicotine (Nicotine 21 Mg Patch) 21 mg TOP NOW ONE Stop: 12/06/21 16:21 Last Admin: 12/06/21 16:24 Dose: 21 mg Documented By: PETER Ondansetron HCl (Ondansetron 4 Mg/2 Ml Inj) 4 mg IV Q6HR PRN PRN Reason: Nausea And Vomiting Phenobarbital (Phenobarbital 65 Mg/Ml Vial) 260 mg IV NOW ONE Stop: 12/06/21 15:07 Last Admin: 12/06/21 15:15 Dose: 260 mg Documented By: PETER Potassium Chloride (Potassium Chloride 20 Meq/15 Ml Udc) 40 meq PO NOW ONE Stop: 12/06/21 16:16 Last Admin: 12/06/21 16:23 Dose: 40 meq Documented By: PETER Reevaluation(s) Reevaluation #1: Reassessed patient 1700, tremors in bilateral upper extremities are still present but decreased, patient remains alert and oriented x3, speech is clear, heart rate 90, patient denies any need for additional medication at this time. His magnesium and potassium are being replaced. After 1 L of normal saline Reevaluation #2: Patient reports that he feels much better, his lactate came back critical at 4.1. Patient was given a secondary L of normal saline, he states that he does not feel anxious or tremulous right now, states that he feels much better. Vital Signs Vital signs: Vital Signs - 8 hr 12/06/21 14:50 12/06/21 16:52 12/06/21 17:00 Temperature 98.4 F Pulse Rate 110 H 100 H 88 Respiratory Rate 26 H 34 H 29 H Blood Pressure Pulse Oximetry 99 96 95 Oxygen Delivery Method Room Air 12/06/21 17:01 12/06/21 17:01 12/06/21 17:30 Temperature Pulse Rate 90 Respiratory Rate 30 H Blood Pressure 146/71 H 150/73 H Pulse Oximetry 96 Oxygen Delivery Method 12/06/21 17:30 12/06/21 18:00 12/06/21 18:00 Temperature Pulse Rate 82 79 Respiratory Rate 24 24 Blood Pressure 162/79 H Pulse Oximetry 96 95 Oxygen Delivery Method 12/06/21 18:30 12/06/21 18:30 12/06/21 19:00 Temperature Pulse Rate 79 83 Respiratory Rate 23 23 Blood Pressure 166/86 H Pulse Oximetry 97 96 Oxygen Delivery Method <Alicia Tse MD - Last Filed: 12/11/21 18:01> Orders Ordered: Discontinued Medications Hydrocodone Bitart/Acetaminophen (Hydrocodone/Acet 5/325 Tablet) 1 tab PO NOW ONE Stop: 12/06/21 16:25 Last Admin: 12/06/21 16:32 Dose: 1 tab Documented By: PETER Diazepam (Diazepam 5 Mg Tablet) 10 mg PO NOW ONE Stop: 12/06/21 18:28 Last Admin: 12/06/21 18:37 Dose: 10 mg Documented By: PETER Sodium Chloride (Normal Saline 0.9%) 1,000 mls @ 1,000 mls/hr IV BOLUS ONE Stop: 12/06/21 15:59 Last Infusion: 12/06/21 18:13 Dose: 0 mls/hr Documented By: Admin: 12/06/21 15:15 Dose: 1,000 mls/hr Documented By: PETER Magnesium Sulfate (Magnesium Sulfate) 2 gm in 50 mls @ 50 mls/hr IV NOW ONE Stop: 12/06/21 17:14 Last Infusion: 12/06/21 17:43 Dose: 0 mls/hr Documented By: PETER Co-signed By: ATILIO Admin: 12/06/21 16:24 Dose: 50 mls/hr Documented By: PETER Co-signed By: ATILIO Sodium Chloride (Normal Saline 0.9%) 1,000 mls @ 1,000 mls/hr IV BOLUS ONE Stop: 12/06/21 19:35 Last Infusion: 12/06/21 19:22 Dose: 0 mls/hr Documented By: Admin: 12/06/21 18:36 Dose: 1,000 mls/hr Documented By: PETER Nicotine (Nicotine 21 Mg Patch) 21 mg TOP NOW ONE Stop: 12/06/21 16:21 Last Admin: 12/06/21 16:24 Dose: 21 mg Documented By: PETER Ondansetron HCl (Ondansetron 4 Mg/2 Ml Inj) 4 mg IV Q6HR PRN PRN Reason: Nausea And Vomiting Phenobarbital (Phenobarbital 65 Mg/Ml Vial) 260 mg IV NOW ONE Stop: 12/06/21 15:07 Last Admin: 12/06/21 15:15 Dose: 260 mg Documented By: PETER Potassium Chloride (Potassium Chloride 20 Meq/15 Ml Udc) 40 meq PO NOW ONE Stop: 12/06/21 16:16 Last Admin: 12/06/21 16:23 Dose: 40 meq Documented By: PETER Vital Signs Vital signs: Vital Signs - 8 hr 12/06/21 14:50 12/06/21 16:52 12/06/21 17:00 Temperature 98.4 F Pulse Rate 110 H 100 H 88 Respiratory Rate 26 H 34 H 29 H Blood Pressure Pulse Oximetry 99 96 95 Oxygen Delivery Method Room Air 12/06/21 17:01 12/06/21 17:01 12/06/21 17:30 Temperature Pulse Rate 90 Respiratory Rate 30 H Blood Pressure 146/71 H 150/73 H Pulse Oximetry 96 Oxygen Delivery Method 12/06/21 17:30 12/06/21 18:00 12/06/21 18:00 Temperature Pulse Rate 82 79 Respiratory Rate 24 24 Blood Pressure 162/79 H Pulse Oximetry 96 95 Oxygen Delivery Method 12/06/21 18:30 12/06/21 18:30 12/06/21 19:00 Temperature Pulse Rate 79 83 Respiratory Rate 23 23 Blood Pressure 166/86 H Pulse Oximetry 97 96 Oxygen Delivery Method MDM - Anxiety <CARYL Azevedo - Last Filed: 12/07/21 07:20> Lab Data Result diagrams: 12/06/21 15:05 12/06/21 15:05 Labs: Lab Results 12/06/21 12/06/21 12/06/21 Range/Units 15:05 15:05 15:05 WBC 12.3 H (4.5-11.0) X10^3/uL RBC 3.84 L (4.5-5.9) X10^6/uL Hgb 12.6 L (13.5-17.5) g/dL Hct 36.3 L (41-53) % MCV 94.4 (80-100) fL MCH 32.9 (26-34) PG MCHC 34.9 (30-36) % RDW 16.7 H (11.6-14.8) % Plt Count 350 (150-400) X10^3/uL Neut % (Auto) 86.0 H (50-75) % Lymph % (Auto) 6.8 L (25-40) % [place] % (Auto) 6.6 (3-14) % Eos % (Auto) 0.1 L (2-4) % Baso % (Auto) 0.5 (0-2) % Neut # (Auto) 49098 H (5098-8361) /uL Lymph # (Auto) 800 L (5580-7778) /uL [place] # (Auto) 800 (0-900) /uL Eos # (Auto) 0 (0-450) /uL Baso # (Auto) 100 (0-100) /uL Sodium 131 L (137-145) mmol/L Potassium 3.1 L (3.4-5.1) mmol/L Chloride 95 L (98-107) mmol/L Carbon Dioxide 25 (22-32) mmol/L BUN 15 (9-20) mg/dL Creatinine 1.18 (0.66-1.25) mg/dL Estimated GFR > 60 (>60) mL/min BUN/Creatinine Ratio 12.7 (6-22) Glucose 161 H (70-100) mg/dL Lactate (0.7-2.1) mmol/L Calcium 8.8 (8.4-10.2) mg/dL Magnesium (1.6-2.3) mg/dL Total Bilirubin 1.1 (0.2-1.3) mg/dL AST 42 (17-59) IU/L ALT 30 (<50) IU/L Alkaline Phosphatase 104 (38-126) U/L Total Protein 7.4 (6.3-8.2) g/dL Albumin 4.2 (3.5-5.0) g/dL Globulin 3.2 (1.7-4.1) g/dL Albumin/Globulin Ratio 1.3 (1.0-2.8) Lipase 173 (23-300) U/L Prolactin (3.7-17.9) ng/mL 12/06/21 12/06/21 12/06/21 Range/Units 15:05 15:05 15:05 WBC (4.5-11.0) X10^3/uL RBC (4.5-5.9) X10^6/uL Hgb (13.5-17.5) g/dL Hct (41-53) % MCV (80-100) fL MCH (26-34) PG MCHC (30-36) % RDW (11.6-14.8) % Plt Count (150-400) X10^3/uL Neut % (Auto) (50-75) % Lymph % (Auto) (25-40) % [place] % (Auto) (3-14) % Eos % (Auto) (2-4) % Baso % (Auto) (0-2) % Neut # (Auto) (0928-1089) /uL Lymph # (Auto) (0596-2283) /uL [place] # (Auto) (0-900) /uL Eos # (Auto) (0-450) /uL Baso # (Auto) (0-100) /uL Sodium (137-145) mmol/L Potassium (3.4-5.1) mmol/L Chloride (98-107) mmol/L Carbon Dioxide (22-32) mmol/L BUN (9-20) mg/dL Creatinine (0.66-1.25) mg/dL Estimated GFR (>60) mL/min BUN/Creatinine Ratio (6-22) Glucose (70-100) mg/dL Lactate 4.1 H* (0.7-2.1) mmol/L Calcium (8.4-10.2) mg/dL Magnesium 1.4 L (1.6-2.3) mg/dL Total Bilirubin (0.2-1.3) mg/dL AST (17-59) IU/L ALT (<50) IU/L Alkaline Phosphatase (38-126) U/L Total Protein (6.3-8.2) g/dL Albumin (3.5-5.0) g/dL Globulin (1.7-4.1) g/dL Albumin/Globulin Ratio (1.0-2.8) Lipase (23-300) U/L Prolactin 8.1 (3.7-17.9) ng/mL 12/06/21 Range/Units 19:22 WBC (4.5-11.0) X10^3/uL RBC (4.5-5.9) X10^6/uL Hgb (13.5-17.5) g/dL Hct (41-53) % MCV (80-100) fL MCH (26-34) PG MCHC (30-36) % RDW (11.6-14.8) % Plt Count (150-400) X10^3/uL Neut % (Auto) (50-75) % Lymph % (Auto) (25-40) % [place] % (Auto) (3-14) % Eos % (Auto) (2-4) % Baso % (Auto) (0-2) % Neut # (Auto) (0033-5065) /uL Lymph # (Auto) (4306-9986) /uL [place] # (Auto) (0-900) /uL Eos # (Auto) (0-450) /uL Baso # (Auto) (0-100) /uL Sodium (137-145) mmol/L Potassium (3.4-5.1) mmol/L Chloride (98-107) mmol/L Carbon Dioxide (22-32) mmol/L BUN (9-20) mg/dL Creatinine (0.66-1.25) mg/dL Estimated GFR (>60) mL/min BUN/Creatinine Ratio (6-22) Glucose (70-100) mg/dL Lactate 1.0 (0.7-2.1) mmol/L Calcium (8.4-10.2) mg/dL Magnesium (1.6-2.3) mg/dL Total Bilirubin (0.2-1.3) mg/dL AST (17-59) IU/L ALT (<50) IU/L Alkaline Phosphatase (38-126) U/L Total Protein (6.3-8.2) g/dL Albumin (3.5-5.0) g/dL Globulin (1.7-4.1) g/dL Albumin/Globulin Ratio (1.0-2.8) Lipase (23-300) U/L Prolactin (3.7-17.9) ng/mL Imaging Data Extremity x-ray #1: Radiologist's Impression: PROCEDURE:? XR HIP W PEL IF DONE LT 2V ? INDICATIONS:? Fall ? TECHNIQUE:? AP pelvis with lateral view(s) of the left hip(s).? ? COMPARISON:? [facility], CR, XR FEMUR 2+ VIEWS LEFT, 08/08/2017, 11:13. ? FINDINGS:? ? Bones:? No fractures identified.? No dislocation.? Pelvic ring appears intact.? No suspicious bony lesions.? 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 ? Soft tissues:? The visualized bowel gas pattern is normal.? No suspicious soft tissue calcifications.? Barraza catheter.? ? ? IMPRESSION:? No fracture identified.? ? If concern for occult fracture recommend CT bony pelvis. ? ? ? Dictated by: Blake Thakkar M.D. on 12/05/2021 at 19:08 ? ? Approved by: Blake Thakkar M.D. on 12/05/2021 at 19:10 ? ECG Data Interpretation: EKG independently reviewed by Dr. Tse and reveals sinus tachycardia at 108 bpm with regular axis and intervals. No STEMI, ST segment changes, arrhythmia, or acute ischemic changes. MDM Narrative Medical decision making narrative: This is a 56-year-old male who returns to the emergency department today for evaluation of his alcohol withdrawal symptoms after he had a withdrawal seizure yesterday and was seen in the emergency department but left Against Medical Advice because he wanted to go home and smoke cigarettes. Patient returns today with moderate tremors, stating that he feels anxious, his heart rate is racing, and was concerned about having another seizure. Patient states that he is never had a seizure in the past, yesterday he arrived in the emergency department postictal after witnessed seizure, CT did not show any acute intracranial abnormalities, nasal fracture visualized on facial bones is most likely remote as patient does not have tenderness over his nasal bones and his nares remain patent. He was given 160 mg of phenobarbital which improved patient's tremors and tongue fasciculations, his heart rate came down and he felt more relaxed. He was given a total of 2 L of normal saline for an elevated lactate at 4.1, his recheck was improved and patient had to void twice before discharging home. His magnesium was low at 1.4, he was repleted with 2 g IV, his creatinine was 1.18, potassium was 3.1, sodium 131, he was given 40 mEq of p.o. potassium via solution. Patient's WBC is improving from yesterday, today is 12.3 yesterday was 13.4, hemoglobin of 12.6 and hematocrit of 36.3 which is stable compared with yesterday. Patient appears much better today than he did yesterday, he received a 10 mg dose of Valium prior to discharge. He was discharged with a 10 day prescription of potassium 20 mEq daily, encouraged him to start eating at least 1 healthy meal per day and hydrating with electrolyte fluids like Gatorade and water. I encouraged him to avoid alcohol since he is over 4 days since his last drink he is likely outside of the worst of his alcohol withdrawals. He has not had any seizure activity today. He was discharged home with a prescription of Valium to take as needed for alcohol withdrawal symptoms. He was ambulatory and appeared much more comfortable at time of discharge without significant hip pain. Discussed his findings with the patient and he was re-evaluated multiple times and improved over the course of his visit today and feels safe to discharge home, he understands to go directly to the pharmacy and will come back to the emergency department if he does not feel safe at home. Patient is appropriate and amenable to discharge home. Vital signs are stable on repeat examination is unremarkable. Patient has been informed of results. Patient has been given strict return to ER precautions for any new or worsening symptoms. Patient understands to follow up closely with outpatient providers as instructed. Patient understands plan and agrees to discharge home. All quest ions and concerns answered at this time.. <Alicia Tse MD - Last Filed: 12/11/21 18:01> Lab Data Labs: Lab Results 12/06/21 12/06/21 12/06/21 Range/Units 15:05 15:05 15:05 WBC 12.3 H (4.5-11.0) X10^3/uL RBC 3.84 L (4.5-5.9) X10^6/uL Hgb 12.6 L (13.5-17.5) g/dL Hct 36.3 L (41-53) % MCV 94.4 (80-100) fL MCH 32.9 (26-34) PG MCHC 34.9 (30-36) % RDW 16.7 H (11.6-14.8) % Plt Count 350 (150-400) X10^3/uL Neut % (Auto) 86.0 H (50-75) % Lymph % (Auto) 6.8 L (25-40) % [place] % (Auto) 6.6 (3-14) % Eos % (Auto) 0.1 L (2-4) % Baso % (Auto) 0.5 (0-2) % Neut # (Auto) 17733 H (5992-0931) /uL Lymph # (Auto) 800 L (3042-6934) /uL [place] # (Auto) 800 (0-900) /uL Eos # (Auto) 0 (0-450) /uL Baso # (Auto) 100 (0-100) /uL Sodium 131 L (137-145) mmol/L Potassium 3.1 L (3.4-5.1) mmol/L Chloride 95 L (98-107) mmol/L Carbon Dioxide 25 (22-32) mmol/L BUN 15 (9-20) mg/dL Creatinine 1.18 (0.66-1.25) mg/dL Estimated GFR > 60 (>60) mL/min BUN/Creatinine Ratio 12.7 (6-22) Glucose 161 H (70-100) mg/dL Lactate (0.7-2.1) mmol/L Calcium 8.8 (8.4-10.2) mg/dL Magnesium (1.6-2.3) mg/dL Total Bilirubin 1.1 (0.2-1.3) mg/dL AST 42 (17-59) IU/L ALT 30 (<50) IU/L Alkaline Phosphatase 104 (38-126) U/L Total Protein 7.4 (6.3-8.2) g/dL Albumin 4.2 (3.5-5.0) g/dL Globulin 3.2 (1.7-4.1) g/dL Albumin/Globulin Ratio 1.3 (1.0-2.8) Lipase 173 (23-300) U/L Prolactin (3.7-17.9) ng/mL 12/06/21 12/06/21 12/06/21 Range/Units 15:05 15:05 15:05 WBC (4.5-11.0) X10^3/uL RBC (4.5-5.9) X10^6/uL Hgb (13.5-17.5) g/dL Hct (41-53) % MCV (80-100) fL MCH (26-34) PG MCHC (30-36) % RDW (11.6-14.8) % Plt Count (150-400) X10^3/uL Neut % (Auto) (50-75) % Lymph % (Auto) (25-40) % [place] % (Auto) (3-14) % Eos % (Auto) (2-4) % Baso % (Auto) (0-2) % Neut # (Auto) (3645-4336) /uL Lymph # (Auto) (3446-3720) /uL [place] # (Auto) (0-900) /uL Eos # (Auto) (0-450) /uL Baso # (Auto) (0-100) /uL Sodium (137-145) mmol/L Potassium (3.4-5.1) mmol/L Chloride (98-107) mmol/L Carbon Dioxide (22-32) mmol/L BUN (9-20) mg/dL Creatinine (0.66-1.25) mg/dL Estimated GFR (>60) mL/min BUN/Creatinine Ratio (6-22) Glucose (70-100) mg/dL Lactate 4.1 H* (0.7-2.1) mmol/L Calcium (8.4-10.2) mg/dL Magnesium 1.4 L (1.6-2.3) mg/dL Total Bilirubin (0.2-1.3) mg/dL AST (17-59) IU/L ALT (<50) IU/L Alkaline Phosphatase (38-126) U/L Total Protein (6.3-8.2) g/dL Albumin (3.5-5.0) g/dL Globulin (1.7-4.1) g/dL Albumin/Globulin Ratio (1.0-2.8) Lipase (23-300) U/L Prolactin 8.1 (3.7-17.9) ng/mL 12/06/21 Range/Units 19:22 WBC (4.5-11.0) X10^3/uL RBC (4.5-5.9) X10^6/uL Hgb (13.5-17.5) g/dL Hct (41-53) % MCV (80-100) fL MCH (26-34) PG MCHC (30-36) % RDW (11.6-14.8) % Plt Count (150-400) X10^3/uL Neut % (Auto) (50-75) % Lymph % (Auto) (25-40) % [place] % (Auto) (3-14) % Eos % (Auto) (2-4) % Baso % (Auto) (0-2) % Neut # (Auto) (8476-7837) /uL Lymph # (Auto) (0261-8765) /uL [place] # (Auto) (0-900) /uL Eos # (Auto) (0-450) /uL Baso # (Auto) (0-100) /uL Sodium (137-145) mmol/L Potassium (3.4-5.1) mmol/L Chloride (98-107) mmol/L Carbon Dioxide (22-32) mmol/L BUN (9-20) mg/dL Creatinine (0.66-1.25) mg/dL Estimated GFR (>60) mL/min BUN/Creatinine Ratio (6-22) Glucose (70-100) mg/dL Lactate 1.0 (0.7-2.1) mmol/L Calcium (8.4-10.2) mg/dL Magnesium (1.6-2.3) mg/dL Total Bilirubin (0.2-1.3) mg/dL AST (17-59) IU/L ALT (<50) IU/L Alkaline Phosphatase (38-126) U/L Total Protein (6.3-8.2) g/dL Albumin (3.5-5.0) g/dL Globulin (1.7-4.1) g/dL Albumin/Globulin Ratio (1.0-2.8) Lipase (23-300) U/L Prolactin (3.7-17.9) ng/mL Discharge Plan Departure Patient Disposition: Home Clinical Impression: Hypomagnesemia, Hypokalemia Alcohol withdrawal Qualifiers: Complication of substance-induced condition: uncomplicated Qualified Code(s): F10.930 - Alcohol use, unspecified with withdrawal, uncomplicated Degenerative joint disease (DJD) of hip Qualifiers: Osteoarthritis type: primary Laterality: left Qualified Code(s): M16.12 - Unilateral primary osteoarthritis, left hip Instructions: DI for Delirium Tremens, DI for Alcohol Use Disorder, DI for Hypokalemia Activity Restrictions/Additional Instructions: *You have been diagnosed with alcohol withdrawals. Please drink plenty water and/or Gatorade tonight, take your potassium pill each morning for the next 10 days with food and water, please take your magnesium pill each night before bed. Please try and eat something healthy each day so you get some nutrition. Thank you for trusting us with your care, I am sorry for your symptoms. Please avoid alcohol since you have made it this far and are over the hump, you can really quit this time. Please come back to the emergency department for any ongoing withdrawal symptoms that your concerned about or if you have a seizure again. Please try and focus on your health and getting better. I have also sent you some medications for alcohol withdrawal available at [facility], I gave you some medications for nausea and vomiting if you need it and potassium to take each day until they are gone with food and water. Please take the Valium as needed for shaking, anxiety, or withdrawal symptoms. *What to do: *Please continue to take your regular medications as directed. [x ] New medication prescriptions sent to your pharmacy: [[facility] ] [ ] New medication written as a paper prescription [ ] No new medications given *Please follow up with your primary care provider in 2-3 days, call for an appointment. Let them know you were seen in the Emergency Department and that we asked that you be seen for follow-up. We will electronically transmit a record of today's note if your PCP is in our system *If you do not have a primary care provider please contact [phone] to establish care with one of the [facility] primary care providers. *Return to Emergency Department if you should have any new, worsening, or concerning symptoms, such as [fever greater than 101F, chills, worsening pain, persistent vomiting or other bothersome symptoms]. Prescriptions: New diazepam [Valium] 5 mg tablet 5 mg PO BID PRN (Reason: alcohol withdrawal) Qty: 10 0RF potassium chloride [Klor-Con M20] 20 mEq tablet,ER particles/crystals 20 meq PO DAILY 10 Days Qty: 10 0RF Rx Instructions: Take with food and water ondansetron 4 mg tablet,disintegrating 4 mg PO Q8H PRN (Reason: nausea and vomiting) Qty: 10 0RF No Action lisinopril PO velaxafine PO albuterol sulfate 90 mcg/actuation HFA aerosol inhaler 2 puff inhalation Q4-6H PRN (Reason: shortness of breath or wheezing) Qty: 8.5 0RF (DME) Avinash Aerosol [place] Enhancer Spacer See Rx Instructions .ROUTE .MEDSUPPLY Qty: 1 0RF Rx Instructions: As directed chlordiazepoxide HCl 25 mg capsule 25 mg PO Q12H Qty: 12 0RF Rx Instructions: 1 tablet 3 times a day for 2 days, 1 tablet twice a day for 2 days, 1 tablet once a day for 2 days. Referrals: Rachelle Nielsen PA-C [Primary Care Provider] - Visit Report Forms: Patient Portal/API <Alicia Tse MD - Last Filed: 12/11/21 18:01> Cosign ED Attending Cosignature Attestation: I was immediately available in the department for consultation throughout this patient's visit. I agree with documentation as above. Alicia Tse MD
[2021-12-06] MEDS: POTASSIUM CHLORIDE 20 MEQ/15 ML UDC 40 MEQ PO (16:23)
[2021-12-06] MEDS: MAGNESIUM SULFATE 2 GM/50 ML PIGGYBACK IV (16:24)
[2021-12-06] MEDS: NICOTINE 21 MG PATCH TOP (16:24)
[2021-12-06] MEDS: HYDROCODONE/ACET 5/325 TABLET 1 TAB PO (16:32)
[2021-12-06 16:49] LABS: Lactate (Lactic Acid) 4.1 mmol/L (0.7-2.1)
[2021-12-06 17:01] LABS: Prolactin 8.1 ng/mL (3.7-17.9)
[2021-12-06 18:26] LABS: Reflexed Lactate in 2 Hours Y
[2021-12-06] MEDS: diazePAM 5 MG TABLET 10 MG PO (18:37)
== END 2021-12-06 19:27 | disposition home or self-care (01) ==
PROVIDERS: Emergency Medicine; Emergency Provider Nurse Practitioner Critical Care Medicine; PCP Physician Assistant
DX: F10.139 Alcohol abuse with withdrawal, unspecified (principal); M16.9 Osteoarthritis of hip, unspecified; E83.42 Hypomagnesemia; E87.6 Hypokalemia
CPT/HCPCS: 36415; 80053; 83605; 83690; 83735; 84146; 85025; 93005; 93010; 96361; 96365; 96375; 99284; J2560; J3475

== ENCOUNTER 2021-12-11 17:22 | Emergency (ER) | payer OTHER, MEDICAID, SELFPAY ==
[2021-12-11 17:26] VITALS: BP 143/77; PULSE 121; RESP 24; TEMP 37.1; O2SAT 97
[2021-12-11] MEDS: ONDANSETRON 4 MG/2 ML INJ IV (17:49)
[2021-12-11] MEDS: PHENobarbital 65 MG/ML VIAL 260 MG IV (17:49)
[2021-12-11] MEDS: SODIUM CHLORIDE 0.9% 1,000 ML 1000 ML IV (17:49)
[2021-12-11 17:54] LABS: Add Manual Diff / Slide Review NO; Basophils Absolute Auto 100 /uL (0-100); Basophils Percent Auto 0.7 % (0-2); Eosinophils Absolute Auto 100 /uL (0-450); Eosinophils Percent Auto 1.1 % (2-4); Hematocrit 39.2 % (41-53); Hemoglobin 13.3 g/dL (13.5-17.5); Lymphocytes Absolute Auto 2000 /uL (1100-4500); Lymphocytes Percent Auto 16.5 % (25-40); Mean Corpuscular HGB Conc 33.9 % (30-36); Mean Corpuscular Hemoglobin 32.8 PG (26-34); Mean Corpuscular Volume 96.6 fL (80-100); Monocytes Absolute Auto 1300 /uL (0-900); Monocytes Percent Auto 10.3 % (3-14); Neutrophils Absolute Auto 8800 /uL (1500-7000); Neutrophils Percent Auto 71.4 % (50-75); Platelet Count 439 X10^3/uL (150-400); Red Blood Cell Count 4.05 X10^6/uL (4.5-5.9); Red Cell Distribution Width 15.8 % (11.6-14.8); White Blood Cell Count 12.3 X10^3/uL (4.5-11.0)
[2021-12-11 17:59] LABS: Alanine Aminotransferase 24 IU/L (<50); Albumin 4.3 g/dL (3.5-5.0); Albumin Globulin Ratio 1.2 (1.0-2.8); Alkaline Phosphatase 108 U/L (38-126); Aspartate Aminotransferase 22 IU/L (17-59); Bilirubin Total 0.4 mg/dL (0.2-1.3); Blood Urea Nitrogen 13 mg/dL (9-20); Calcium 8.8 mg/dL (8.4-10.2); Carbon Dioxide 24 mmol/L (22-32); Chloride 100 mmol/L (98-107); Estimated Glomerular Filt Rate > 60 mL/min (>60); Globulin 3.6 g/dL (1.7-4.1); Glucose 94 mg/dL (70-100); HEMOLYSIS < 15 (0-50); Lipase 165 U/L (23-300); Magnesium 1.8 mg/dL (1.6-2.3); Potassium 3.6 mmol/L (3.4-5.1); Sodium 138 mmol/L (137-145); Total Protein 7.9 g/dL (6.3-8.2)
[2021-12-11 18:00] VITALS: BP 149/79; PULSE 107; RESP 12; O2SAT 97
[2021-12-11 18:00] LABS: Ethanol (ETOH) 211 mg/dL
--- NOTE | 2021-12-11 18:04 | ED_ITS ---
HPI - General Adult General Chief complaint: Toxicology Problem Stated complaint: Needs Alcohol DETOX Time Seen by Provider: 12/11/21 17:42 Source: patient Mode of arrival: Wheelchair History of Present Illness HPI narrative: 56-year-old gentleman with long history of alcohol use disorder, tobacco abuse, hypertension was seen on December 05 and with alcohol withdrawal symptoms admission was offered both times and he declined. On the he had had a seizure that was felt to be alcohol related. Notes that he is now noting that ?his entire left side is jacked up? he is intoxicated so it is a bit more challenging to pin down his symptoms however it does seem that he is having paresthesias in the upper and lower extremity, difficulty walking, complaining of a foot drag on the left side and attributes all of it to his ?sciatica? but it is unclear that he is actually having any back pain and he notes that he has not had any back pain issues for a number of years. Complains that he has been having more difficulty with thinking and word-finding difficulties but again has been drinking a 1/5th of alcohol daily. He does report that it has been worse since his seizure. On the he was given medications to help with detox but he was afraid that he would seize again so he has not taken any of those he has continued drinking approximately a 5th a day and comes in today asking for help with detox and states that he will stay in the hospital if recommended this time. Has a long chronic cough from smoking that he states has not changed. Related Data Home Medications Medication Instructions Recorded Confirmed lisinopril PO 04/28/20 04/28/20 velaxafine PO 04/28/20 04/28/20 Previous Rx's Medication Instructions Recorded albuterol sulfate 90 mcg/actuation 2 puff inhalation Q4-6H PRN 04/28/20 aerosol inhaler shortness of breath or wheezing #8.5 grams inhalational spacing device (Avinash #1 ea 04/28/20 Aerosol [place] Enhancer spacer) chlordiazepoxide HCl 25 mg capsule 25 mg PO Q12H #12 caps 12/05/21 diazepam 5 mg tablet (Valium) 5 mg PO BID PRN alcohol withdrawal 12/06/21 #10 tabs ondansetron 4 mg disintegrating 4 mg PO Q8H PRN nausea and 12/06/21 tablet vomiting #10 tabs potassium chloride 20 mEq 20 meq PO DAILY 10 days #10 tabs 12/06/21 tablet,extended release(part/cryst) (Klor-Con M) Allergies Allergy/AdvReac Type Severity Reaction Status Date / Time No Known Drug Allergies Allergy Verified 12/05/21 15:29 Review of Systems Review of Systems Narrative: Remainder of review of systems is challenging due to his acute alcohol intoxication Patient History Medical History (Updated 12/11/21 @ 21:57 by Alicia Tse MD) Alcohol use disorder Continuous tobacco abuse Hypertension Social History Smoking Status: Current every day smoker Smoking Status: Current every day smoker alcohol intake frequency: 3 or more drinks per day Alcohol type: hard liquor Substance Use Type: does not use Exam Initial Vital Signs Initial Vital Signs: Vital Signs Temperature 98.7 F 12/11/21 17:26 Pulse Rate 121 H 12/11/21 17:26 Respiratory Rate 24 12/11/21 17:26 Blood Pressure 143/77 H 12/11/21 17:26 Pulse Oximetry 97 12/11/21 17:26 Oxygen Delivery Method 12/11/21 17:26 General: Chronically ill-appearing, smelling of alcohol in acutely intoxicated but attempting to be cooperative. Abrasion to the left side of his forehead from his seizure and fall a week ago. HEENT: Moist mucous membranes, injected l sclera with reactive pupils, Neck: No JVD, supple Respiratory: Lungs with scattered wheezing in all lung frankel, no accessory muscle use, no rales no rhonchi. Full and symmetrical air movement Cardiac: Tachycardic but otherwise Regular rate and rhythm no murmurs no bruits Abdomen: Soft, nontender, no obvious hepatosplenomegaly, good bowel tones, no flank pain Skin: Warm and dry, no rashes Neurologic: Slightly slurred speech but acutely intoxicated. Cranial nerves are unremarkable. Decreased sensation upper extremity lower extremity left side. No obvious motor abnormalities on the left side upper extremity but weakness left leg also complains of pain in his low back when he does lift his left leg. Extremities: No new trauma, well perfused Psych: Cooperative, gregarious NIH Stroke Scale/Score (NIHSS) RESULT SUMMARY: 5 points NIH Stroke Scale INPUTS: 1A: Level of consciousness ?> 0 = Alert; keenly responsive 1B: Ask month and age ?> 0 = Both questions right 1C: 'Blink eyes' & 'squeeze hands' ?> 0 = Performs both tasks 2: Horizontal extraocular movements ?> 0 = Normal 3: Visual frankel ?> 0 = No visual loss 4: Facial palsy ?> 0 = Normal symmetry 5A: Left arm motor drift ?> 0 = No drift for 10 seconds 5B: Right arm motor drift ?> 0 = No drift for 10 seconds 6A: Left leg motor drift ?> 1 = Drift, but doesn't hit bed 6B: Right leg motor drift ?> 0 = No drift for 5 seconds 7: Limb Ataxia ?> 1 = Ataxia in 1 Limb 8: Sensation ?> 1 = Mild-moderate loss: less sharp/more dull 9: Language/aphasia ?> 1 = Mild-moderate aphasia: some obvious changes, without significant limitation 10: Dysarthria ?> 1 = Mild-moderate dysarthria: slurring but can be understood 11: Extinction/inattention ?> 0 = No abnormality Course Orders Ordered: ED Orders 12/11/21 17:39 Complete Blood Count AUTO DIFF Stat Comprehensive Metabolic Panel Stat Ethanol (ETOH) Stat Lipase Stat Magnesium Stat 12/11/21 17:58 EKG-12 Lead Stat 12/11/21 18:25 CT head/brain wo con Stat 12/11/21 18:27 COVID19 -Nasal RAPID/Pre-Proc Stat Urine Drug Screen, Rapid Stat Discontinued Medications Sodium Chloride (Normal Saline 0.9%) 1,000 mls @ 1,000 mls/hr IV BOLUS ONE Stop: 12/11/21 18:41 Last Infusion: 12/11/21 19:06 Dose: 0 mls/hr Documented By: Admin: 12/11/21 17:49 Dose: 1,000 mls/hr Documented By: RADHA Thiamine HCl 100 mg/ Sodium (Chloride) 101 mls @ 404 mls/hr IV NOW ONE Stop: 12/11/21 18:26 Last Infusion: 12/11/21 19:36 Dose: 0 mls/hr Documented By: Admin: 12/11/21 18:52 Dose: 404 mls/hr Documented By: RADHA Nicotine (Nicotine 21 Mg Patch) 21 mg TOP NOW ONE Stop: 12/11/21 19:37 Last Admin: 12/11/21 19:57 Dose: 21 mg Documented By: RADHA Ondansetron HCl (Ondansetron 4 Mg/2 Ml Inj) 4 mg IV NOW ONE Stop: 12/11/21 17:43 Last Admin: 12/11/21 17:49 Dose: 4 mg Documented By: RADHA Phenobarbital (Phenobarbital 65 Mg/Ml Vial) 260 mg IV NOW ONE Stop: 12/11/21 17:43 Last Admin: 12/11/21 17:49 Dose: 260 mg Documented By: RADHA Vital Signs Vital signs: Vital Signs - 8 hr 12/11/21 17:26 Temperature 98.7 F Pulse Rate 121 H Respiratory Rate 24 Blood Pressure 143/77 H Pulse Oximetry 97 Oxygen Delivery Method Room Air Medical Decision Making Lab Data Result diagrams: 12/11/21 17:39 12/11/21 17:39 Labs: Lab Results 12/11/21 12/11/21 12/11/21 Range/Units 17:39 17:39 17:39 WBC 12.3 H (4.5-11.0) X10^3/uL RBC 4.05 L (4.5-5.9) X10^6/uL Hgb 13.3 L (13.5-17.5) g/dL Hct 39.2 L (41-53) % MCV 96.6 (80-100) fL MCH 32.8 (26-34) PG MCHC 33.9 (30-36) % RDW 15.8 H (11.6-14.8) % Plt Count 439 H (150-400) X10^3/uL Neut % (Auto) 71.4 (50-75) % Lymph % (Auto) 16.5 L (25-40) % Brooks % (Auto) 10.3 (3-14) % Eos % (Auto) 1.1 L (2-4) % Baso % (Auto) 0.7 (0-2) % Neut # (Auto) 8800 H (7719-0205) /uL Lymph # (Auto) 2000 (6601-5700) /uL Brooks # (Auto) 1300 H (0-900) /uL Eos # (Auto) 100 (0-450) /uL Baso # (Auto) 100 (0-100) /uL Sodium 138 (137-145) mmol/L Potassium 3.6 (3.4-5.1) mmol/L Chloride 100 (98-107) mmol/L Carbon Dioxide 24 (22-32) mmol/L BUN 13 (9-20) mg/dL Creatinine 0.81 (0.66-1.25) mg/dL Estimated GFR > 60 (>60) mL/min BUN/Creatinine Ratio 16.0 (6-22) Glucose 94 (70-100) mg/dL Calcium 8.8 (8.4-10.2) mg/dL Magnesium 1.8 (1.6-2.3) mg/dL Total Bilirubin 0.4 (0.2-1.3) mg/dL AST 22 (17-59) IU/L ALT 24 (<50) IU/L Alkaline Phosphatase 108 (38-126) U/L Total Protein 7.9 (6.3-8.2) g/dL Albumin 4.3 (3.5-5.0) g/dL Globulin 3.6 (1.7-4.1) g/dL Albumin/Globulin Ratio 1.2 (1.0-2.8) Lipase 165 (23-300) U/L Ethyl Alcohol 211 H ( - 10) mg/dL Point of Care Testing Glucose POC 156 Point of care testing: Point of Care Testing Glucose POC [address] scan - head: Radiologist's Impression: FINDINGS:? Image quality:? Excellent.? ? CSF spaces:? Basal cisterns are patent.? No extra-axial fluid collections.? Ventricles are normal in size and shape.? ? Brain:? No midline shift.? No intracranial masses or hemorrhage.? Rivera-white matter interface is normal.? ? Skull and face:? Calvarium and visualized facial bones are intact, without suspicious lesions.? ? Sinuses:? Visualized sinuses and mastoids are clear.? ? IMPRESSION:? No acute finding. ? ? Dictated by: Chao Medley M.D. on 12/11/2021 at 19:15 ? ? ECG Data Interpretation: Sinus rhythm at a rate of 106 No acute ischemic changes MDM Narrative Medical decision making narrative: 56-year-old gentleman with alcohol use disorder presents for the 3rd time in a week requesting help with withdrawal. Initially he was offered admission however chose to leave. He was seen again the following day and was sent home with Librium however he chose to continue drinking because ?it was more fun? and did not take the Librium. With natalia discussion today he states that he is willing to stay if admission is offered. He complains of left-sided paresthesia and after a seizure a week ago he may well have had a stroke. Full exam is chal lenging as he is currently intoxicated. CT scan does not show acute findings but he may benefit from MRI if he continues to have neurologic findings once he simon. He has had a dose of phenobarbital in the emergency department and his initial alcohol level was 211 at 5:30 this evening with a CIWA score of 0. 950pm patient is re-evaluated. He has multiple questions about how long he needs to continue to be in the emergency department. We discussed length of detox and recognizing the severity of his symptoms when he stopped drinking for 48 hours I suspect he will need a couple of days. At this point he states that he ?needs to pay his bills? and feels that he is not yet ready to be admitted to the hospital. He still has the Librium that was prescribed with his recent visit and can use that as needed. Encouraged to come back when he decides he has the time and commitment to actually get through the acute detox process to begin dealing with sobriety. Discharge Plan Departure Patient Disposition: Home Clinical Impression: Alcohol withdrawal Instructions: DI for Drug or Alcohol Withdrawal Activity Restrictions/Additional Instructions: Thank you for coming in today. I am glad you are at least considering the steps that your going to need to take to get through acute alcohol detoxification so you can begin sobriety. I appreciate that this evening and tomorrow you have other things that need to be done and issues to be taking care of. When you find that you have the time, and it may be anywhere from 1-5 days depending on how your body response to the lack of alcohol, then please feel free to return to the emergency department for help with withdrawal. Another option is the stabilization Center on [facility] called [facility]. Their phone number is [phone]. They also help with medical detoxification from alcohol and you can always contact them. Prescriptions: No Action lisinopril PO velaxafine PO albuterol sulfate 90 mcg/actuation HFA aerosol inhaler 2 puff inhalation Q4-6H PRN (Reason: shortness of breath or wheezing) Qty: 8.5 0RF (DME) Avinash Aerosol [place] Enhancer Spacer See Rx Instructions .ROUTE .MEDSUPPLY Qty: 1 0RF Rx Instructions: As directed chlordiazepoxide HCl 25 mg capsule 25 mg PO Q12H Qty: 12 0RF Rx Instructions: 1 tablet 3 times a day for 2 days, 1 tablet twice a day for 2 days, 1 tablet once a day for 2 days. diazepam [Valium] 5 mg tablet 5 mg PO BID PRN (Reason: alcohol withdrawal) Qty: 10 0RF potassium chloride [Klor-Con M20] 20 mEq tablet,ER particles/crystals 20 meq PO DAILY 10 Days Qty: 10 0RF Rx Instructions: Take with food and water ondansetron 4 mg tablet,disintegrating 4 mg PO Q8H PRN (Reason: nausea and vomiting) Qty: 10 0RF Referrals: Rachelle Nielsen PA-C [Primary Care Provider] -
--- NOTE | 2021-12-11 18:25 | DI.CT.S_ITS ---
PROCEDURE: CT HEAD/BRAIN WO CON INDICATIONS: left side paresthesia TECHNIQUE: Noncontrast 4.5 mm thick angled axial sections acquired from the foramen magnum to the vertex, with coronal and sagittal reformats. For radiation dose reduction, the following was used: automated exposure control, adjustment of mA and/or kV according to patient size. COMPARISON: [facility], CT, CT HEAD/BRAIN WO CON, 12/05/2021, 15:26. FINDINGS: Image quality: Excellent. CSF spaces: Basal cisterns are patent. No extra-axial fluid collections. Ventricles are normal in size and shape. Brain: No midline shift. No intracranial masses or hemorrhage. Rivera-white matter interface is normal. Skull and face: Calvarium and visualized facial bones are intact, without suspicious lesions. Sinuses: Visualized sinuses and mastoids are clear. IMPRESSION: No acute finding. Dictated by: Chao Medley M.D. on 12/11/2021 at 19:15 Approved by: Chao Medley M.D. on 12/11/2021 at 19:16
[2021-12-11] MEDS: THIAMINE 100 MG in SODIUM CHLORIDE 0.9% 100 ML 404 MG IV (18:52)
[2021-12-11 19:00] VITALS: BP 142/83; PULSE 95; RESP 12; O2SAT 97
[2021-12-11] MEDS: NICOTINE 21 MG PATCH TOP (19:57)
[2021-12-11 20:00] VITALS: BP 136/66; PULSE 109; RESP 12; O2SAT 99
[2021-12-11 21:00] VITALS: BP 158/84; PULSE 95
[2021-12-11 21:30] VITALS: BP 123/95; PULSE 90
== END 2021-12-11 22:09 | disposition home or self-care (01) ==
PROVIDERS: Emergency Medicine; Emergency Provider Emergency Medicine; PCP Physician Assistant
DX: F10.139 Alcohol abuse with withdrawal, unspecified (principal); Y90.7 Blood alcohol level of 200-239 mg/100 ml; R00.0 Tachycardia, unspecified
CPT/HCPCS: 36415; 70450; 80053; 80320; 83690; 83735; 85025; 93005; 96361; 96374; 96375; 99284; J2405; J2560

== ENCOUNTER 2022-03-14 12:13 | Emergency (ER) | payer OTHER, MEDICAID, SELFPAY ==
[2022-03-14] VITALS (11 sets, daily range): BP systolic 153–192; BP diastolic 80–113; PULSE 85–129; RESP 20–26; O2SAT 92–98; BMI 31.9
[2022-03-14 12:43] LABS: Add Manual Diff / Slide Review NO; Basophils Absolute Auto 100 /uL (0-100); Basophils Percent Auto 0.9 % (0-2); Eosinophils Absolute Auto 0 /uL (0-450); Eosinophils Percent Auto 0.2 % (2-4); Hematocrit 40.5 % (41-53); Hemoglobin 13.4 g/dL (13.5-17.5); Lymphocytes Absolute Auto 1700 /uL (1100-4500); Lymphocytes Percent Auto 13.5 % (25-40); Mean Corpuscular HGB Conc 33.1 % (30-36); Mean Corpuscular Hemoglobin 30.4 PG (26-34); Mean Corpuscular Volume 91.9 fL (80-100); Monocytes Absolute Auto 1400 /uL (0-900); Monocytes Percent Auto 11.1 % (3-14); Neutrophils Absolute Auto 9300 /uL (1500-7000); Neutrophils Percent Auto 74.3 % (50-75); Platelet Count 423 X10^3/uL (150-400); Red Blood Cell Count 4.41 X10^6/uL (4.5-5.9); Red Cell Distribution Width 20.4 % (11.6-14.8); White Blood Cell Count 12.5 X10^3/uL (4.5-11.0)
[2022-03-14 12:57] LABS: Albumin 4.7 g/dL (3.5-5.0); Albumin Globulin Ratio 1.2 (1.0-2.8); Alkaline Phosphatase 106 U/L (38-126); Aspartate Aminotransferase 54 IU/L (17-59); BUN Creatinine Ratio 16.2 (6-22); Bilirubin Total 1.2 mg/dL (0.2-1.3); Blood Urea Nitrogen 16 mg/dL (9-20); Carbon Dioxide 20 mmol/L (22-32); Chloride 94 mmol/L (98-107); Estimated Glomerular Filt Rate > 60 mL/min (>60); Ethanol (ETOH) < 10 mg/dL; Globulin 3.9 g/dL (1.7-4.1); Glucose 162 mg/dL (70-100); Lipase 206 U/L (23-300); Magnesium 1.3 mg/dL (1.6-2.3); Potassium 4.3 mmol/L (3.4-5.1); Sodium 134 mmol/L (137-145); Total Protein 8.6 g/dL (6.3-8.2)
--- NOTE | 2022-03-14 12:58 | ED.SEIZURE ---
HPI - Seizure General Chief Complaint: Seizure Stated Complaint: Seizure Time Seen by Provider: 03/14/22 12:32 Source: patient and EMS Mode of arrival: EMS Limitations: no limitations History of Present Illness HPI Narrative: Patient is a 56-year-old male. History of alcohol abuse. Proximally 3 months ago was seen here in the emergency department several days in a row for alcohol withdrawal seizure. He left Against Medical Advice after that with an was also seen several times for alcohol withdrawal. He is time was discharged home because he did not want to go to detox. He is here today by EMS because he had what was reported as seizure-like activity. This was witnessed by an old boss of his. He arrived by EMS. Seizure stopped spontaneously. Patient reports no discomfort. He did not hit his head per report. He states that his last drink was 3-4 days ago. Related Data Home Medications Medication Instructions Recorded Confirmed lisinopril PO 04/28/20 04/28/20 velaxafine PO 04/28/20 04/28/20 Previous Rx's Medication Instructions Recorded albuterol sulfate 90 mcg/actuation 2 puff inhalation Q4-6H PRN 04/28/20 aerosol inhaler shortness of breath or wheezing #8.5 grams inhalational spacing device (Avinash #1 ea 04/28/20 Aerosol [place] Enhancer spacer) chlordiazepoxide HCl 25 mg capsule 25 mg PO Q12H #12 caps 12/05/21 diazepam 5 mg tablet (Valium) 5 mg PO BID PRN alcohol withdrawal 12/06/21 #10 tabs ondansetron 4 mg disintegrating 4 mg PO Q8H PRN nausea and 12/06/21 tablet vomiting #10 tabs Allergies Allergy/AdvReac Type Severity Reaction Status Date / Time No Known Drug Allergies Allergy Verified 12/05/21 15:29 Review of Systems Review of Systems ROS Unobtainable: All systems reviewed & are unremarkable except as noted in HPI and below Patient History Medical History Alcohol use disorder Continuous tobacco abuse Hypertension Social History Smoking Status: Current every day smoker Smoking Status: Current every day smoker alcohol intake frequency: 3 or more drinks per day Alcohol type: hard liquor Substance Use Type: does not use Exam Initial Vital Signs Initial Vital Signs: Vital Signs Pulse Rate 129 H 03/14/22 12:42 Respiratory Rate 22 03/14/22 12:42 Blood Pressure 176/107 H 03/14/22 12:42 Pulse Oximetry 95 03/14/22 12:42 Oxygen Delivery Method 03/14/22 12:42 Const General: cooperative, comfortable and No ill appearing HENMT Head: normal to inspection and normocephalic Resp Effort & Inspection: normal respiratory effort Auscultation: clear to auscultation bilaterally Cardio Rate: regular rate Rhythm: regular rhythm GI Palpation: soft, No firm and No tender Skin General: no rashes or lesions noted Lesions: no lesions Neuro General: patient alert, patient awake, patient oriented x3 and moves all extremities Cognition: normal cognition Speech: speech normal Extrem General: normal to inspection and capillary refill normal Psych Appearance: grossly normal and well kempt Speech and Movement: speech and movement normal Mood: congruent mood Course Orders Ordered: ED Orders 03/14/22 12:30 Complete Blood Count AUTO DIFF Stat Comprehensive Metabolic Panel Stat Ethanol (ETOH) Stat Lipase Stat Magnesium Stat Prolactin Stat 03/14/22 12:33 EKG-12 Lead Stat 03/14/22 13:01 Consult to DIRECTOR OF STRATEGIC COMMUNICATIONS - Dumb Waiter Operator Stat 03/14/22 13:20 COVID19 -Nasal RAPID/Pre-Proc Stat Discontinued Medications Chlordiazepoxide HCl (Chlordiazepoxide 25 Mg Capsule) 25 mg PO NOW ONE Stop: 03/14/22 17:14 Last Admin: 03/14/22 17:31 Dose: 25 mg Documented By: FATMATA Sodium Chloride (Normal Saline 0.9%) 1,000 mls @ 125 mls/hr IV CONT KUMAR Last Infusion: 03/14/22 18:15 Dose: 0 mls/hr Documented By: Admin: 03/14/22 13:09 Dose: 125 mls/hr Documented By: KIERA Phenobarbital (Phenobarbital 65 Mg/Ml Vial) 130 mg IV NOW ONE Stop: 03/14/22 12:33 Last Admin: 03/14/22 13:08 Dose: 130 mg Documented By: KIERA Vital Signs Vital signs: Vital Signs - 8 hr 03/14/22 12:42 03/14/22 13:21 03/14/22 13:30 Pulse Rate 129 H 121 H 118 H Respiratory Rate 22 24 23 Blood Pressure 176/107 H Pulse Oximetry 95 97 98 Oxygen Delivery Method Room Air 03/14/22 13:31 03/14/22 13:31 03/14/22 14:00 Pulse Rate 118 H Respiratory Rate 23 Blood Pressure 192/113 H 153/85 H Pulse Oximetry 98 Oxygen Delivery Method 03/14/22 14:00 03/14/22 14:30 03/14/22 14:30 Pulse Rate 110 H 94 H Respiratory Rate 22 26 H Blood Pressure 164/82 H Pulse Oximetry 95 94 Oxygen Delivery Method 03/14/22 15:00 03/14/22 15:00 03/14/22 15:29 Pulse Rate 93 H 88 Respiratory Rate 23 Blood Pressure 169/80 H Pulse Oximetry 95 95 Oxygen Delivery Method 03/14/22 15:30 03/14/22 15:30 03/14/22 16:00 Pulse Rate 85 Respiratory Rate 23 Blood Pressure 168/83 H 165/81 H Pulse Oximetry 94 Oxygen Delivery Method 03/14/22 16:00 03/14/22 18:09 Pulse Rate 88 95 H Respiratory Rate 23 20 Blood Pressure 177/103 H Pulse Oximetry 92 97 Oxygen Delivery Method Room Air MDM - Seizure Medical Records Attestation: I reviewed the patient's medical records. Lab Data Attestation: I reviewed the patient's lab results. Result diagrams: 03/14/22 12:30 03/14/22 12:30 Labs: Lab Results 03/14/22 03/14/22 03/14/22 Range/Units 12:30 12:30 13:20 WBC 12.5 H (4.5-11.0) X10^3/uL RBC 4.41 L (4.5-5.9) X10^6/uL Hgb 13.4 L (13.5-17.5) g/dL Hct 40.5 L (41-53) % MCV 91.9 (80-100) fL MCH 30.4 (26-34) PG MCHC 33.1 (30-36) % RDW 20.4 H (11.6-14.8) % Plt Count 423 H (150-400) X10^3/uL Neut % (Auto) 74.3 (50-75) % Lymph % (Auto) 13.5 L (25-40) % Geary % (Auto) 11.1 (3-14) % Eos % (Auto) 0.2 L (2-4) % Baso % (Auto) 0.9 (0-2) % Neut # (Auto) 9300 H (9428-7021) /uL Lymph # (Auto) 1700 (4081-2299) /uL Geary # (Auto) 1400 H (0-900) /uL Eos # (Auto) 0 (0-450) /uL Baso # (Auto) 100 (0-100) /uL Nucleated RBCs Cancelled Hypersegmented Neuts Cancelled Hypogranular Neuts Cancelled Reactive Lymphocytes Cancelled Smudge Cells Cancelled Other Cell Type Cancelled Toxic Granulation Cancelled Toxic Vacuolation Cancelled Dohle Bodies Cancelled Candice Rods Cancelled WBC Morphology Comment Cancelled Platelet Estimate Cancelled Clumped Platelets Cancelled Plt Morphology Comment Cancelled RBC Morphology Cancelled Dimorphic RBCs Cancelled Polychromasia Cancelled Hypochromasia Cancelled Poikilocytosis Cancelled Basophilic Stippling Cancelled Anisocytosis Cancelled Microcytosis Cancelled Macrocytosis Cancelled Spherocytes Cancelled Pappenheimer Bodies Cancelled Sickle Cells Cancelled Target Cells Cancelled Tear Drop Cells Cancelled Ovalocytes Cancelled Stomatocytes Cancelled Helmet Cells Cancelled Henning-Inchelium Bodies Cancelled [place] Rings Cancelled [place] Cells Cancelled Acanthocytes (Spur) Cancelled Rouleaux Cancelled Schistocytes Cancelled Sodium 134 L (137-145) mmol/L Potassium 4.3 (3.4-5.1) mmol/L Chloride 94 L (98-107) mmol/L Carbon Dioxide 20 L (22-32) mmol/L BUN 16 (9-20) mg/dL Creatinine 0.99 (0.66-1.25) mg/dL Estimated GFR > 60 (>60) mL/min BUN/Creatinine Ratio 16.2 (6-22) Glucose 162 H (70-100) mg/dL Calcium 9.0 (8.4-10.2) mg/dL Magnesium 1.3 L (1.6-2.3) mg/dL Total Bilirubin 1.2 (0.2-1.3) mg/dL AST 54 (17-59) IU/L ALT 39 (<50) IU/L Alkaline Phosphatase 106 (38-126) U/L Total Protein 8.6 H (6.3-8.2) g/dL Albumin 4.7 (3.5-5.0) g/dL Globulin 3.9 (1.7-4.1) g/dL Albumin/Globulin Ratio 1.2 (1.0-2.8) Lipase 206 (23-300) U/L Prolactin 49.3 H (3.7-17.9) ng/mL Ethyl Alcohol < 10 ( - 10) mg/dL SARS-CoV-2 (PCR) Negative (Negative) ECG Data Attestation: I personally reviewed and interpreted this ECG as follows: Interpretation: Sinus tachycardia Ventricular rate 122 Normal axis Normal QRS LVH No ST T wave changes MDM Narrative Medical decision making narrative: Patient had no further seizure-like activity here in the ER. Review of his medical record shows he has had alcohol withdrawal symptoms and potentially alcohol withdrawal seizure in the past. I would not be surprised if he did have a an alcohol withdrawal seizure earlier today. He was seen by social work. He declined admission to the hospital. He declined staying here in the emergency department. He declined transfer to detox facility. We did discuss the concern about withdrawal seizures in the risks to include or other injury because of falling. After all of these discussions the patient stated that he would like to be discharged home. He stated that he had ?things to do ?he stated that he is moving to [place] at the beginning of March to live. He stated that he needed to do things before that happened. Informed him that detox would only be for a couple days he expressed understanding of this but would still like to be discharged home. Is alert oriented x3. GCS of 15. Not clinically intoxicated. My opinion does have the capacity to make decisions. Will discharge home with strict return precautions. He expressed understanding and agreement with plan. Discharge Plan Departure Patient Disposition: Home Clinical Impression: Alcohol withdrawal Instructions: Alcohol Withdrawal Activity Restrictions/Additional Instructions: Continue to take all of your medications as directed. I highly encourage you to try to find someone who can stay with you tonight. Also encouraged you to abstain from alcohol. Return to the emergency department for any new or worsening symptoms. Prescriptions: No Action lisinopril PO velaxafine PO albuterol sulfate 90 mcg/actuation HFA aerosol inhaler 2 puff inhalation Q4-6H PRN (Reason: shortness of breath or wheezing) Qty: 8.5 0RF (DME) Avinash Aerosol [place] Enhancer Spacer See Rx Instructions .ROUTE .MEDSUPPLY Qty: 1 0RF Rx Instructions: As directed chlordiazepoxide HCl 25 mg capsule 25 mg PO Q12H Qty: 12 0RF Rx Instructions: 1 tablet 3 times a day for 2 days, 1 tablet twice a day for 2 days, 1 tablet once a day for 2 days. diazepam [Valium] 5 mg tablet 5 mg PO BID PRN (Reason: alcohol withdrawal) Qty: 10 0RF ondansetron 4 mg tablet,disintegrating 4 mg PO Q8H PRN (Reason: nausea and vomiting) Qty: 10 0RF Referrals: Rachelle Nielsen PA-C [Primary Care Provider] - Visit Report Forms: Patient Portal/API
[2022-03-14 13:04] LABS: Alanine Aminotransferase 39 IU/L (<50); HEMOLYSIS 90 (0-50)
[2022-03-14] MEDS: PHENobarbital 65 MG/ML VIAL 130 MG IV (13:08)
[2022-03-14] MEDS: SODIUM CHLORIDE 0.9% 1,000 ML 125 ML IV (13:09)
[2022-03-14 13:14] LABS: Prolactin 49.3 ng/mL (3.7-17.9)
[2022-03-14 13:42] LABS: COVID19 -Nasal RAPID Negative (Negative)
--- NOTE | 2022-03-14 15:15 | CM.SWNOTE ---
FIRESTOP/CONTAINMENT WORKER - Offset Plate Maker Assessment FIRESTOP/CONTAINMENT WORKER - Offset Plate Maker Assessment Start: 03/14/22 15:01 Freq: Status: Active Protocol: Document 03/14/22 15:01 (Rec: 03/14/22 15:15 TM [id number]) FIRESTOP/CONTAINMENT WORKER/Offset Plate Maker Assessment Time Spent with Patient Start date 03/14/22 Visit Start Time 14:30 End date 03/14/22 Visit End Time 15:00 Mental Health Screening Include Onset, Duration, Intensity Current Behavioral Health Provider(s) none. Include Facility, Provider, Ph. # Psych. Hx Mental Health and Chemical anxiety. Pt prescribed effexor Dependency and hydroxyzine. Psychiatric Hospitalizations (date(s)/ denies. location) Psychosocial information & Support Patient reports that he has Systems supportive family in [place] and that he is moving there on 03/23. Substance Abuse Screening Include Onset, Duration, Intensity Presenting Problem Pt is a 56 year old male with history of alcohol use disorder and seizures who presents following a seizure. Precipitating Event(s) Pt reports that he stopped drinking cold turkey 3-4 days ago and had a seizure this morning. Pt reports that about two months ago he quit cold turkey for 5 days and experienced his first seizure. Rehab Facilities? ((Date(s), Location(s) Pt denies inpatient detox. ) History of Withdrawal? Seizures? Pt reports that this is his second seizure in 6months following quitting cold turkey . Longest Period of Sobriety 5 years. Psychosocial information & Support Family in [place]. Systems Legal Concerns Legal Matters - Outstanding Issues none. Mental Status Orientation (Person/Place/Time) Oriented to place, time, person. Stated Mood This seizure really scared me . Affect (Congruent with Mood?) Broad. Thought Content - Specify/Describe denies AH, VH. Obsessions, Delusions, Hallucinations Thought Processes (Mesofgt-Ozkcsajg-Gvwm Logical, goal oriented. Xrfuqlyu-Oawgsevu-Pvnekrteld- Mylhatrfblslpf-Zkxzlpv-Ipzyzwffdzsi- Thought Blocking) Speech (Ukwtty-Bwxo-Ssctmri-Rapid-Soft- Normal. Loud-Pressured) Motor (Cwzmvc-Nrtawdmzb-Zjzr-Other) normal. Insight (Uylx-Acyb-Pfrs/Limited) Fair. Judgement (Aagn-Rcoj-Yzsh/Limited) Fair. Impulse Control (Adequate-Impaired) not tested. Memory (Wdsfhnomu-Dlsqro-Vwqvai, intact. Impaired-Intact) Concentration (Intact-Impaired) intact. Attention (Intact-Impaired) intact. Behavior (Appropriate-Inappropriate) appropriate. Risk Assessment Suicidal Ideation (Plan) No Homicidal Ideation (Plan) No Intervention Intervention SW met with patient to discuss his alcohol use and plan for sobriety. Pt plans to maintain sobriety until his move to [place], which happens on . Pt reports that he is moving in with his ex- who will not allow drinking. Pt reports that this seizure scared him because he thought the first was a fluke. Pt reports committment to abstain from alcohol use. SW provided education on danger of alcohol detox, especially for someone who has experienced seizures. Pt understands that if he relapses, he should not attempt to quit cold turkey on his own. Pt should come back to ED if he relapses to be medically monitored. Plan RA Plan Pt will discharge home with plan to move to [place] in 8 days. Pt understands danger of quitting cold turkey without medical assistance. LIONEL Lugo
[2022-03-14] MEDS: chlordiazePOXIDE 25 MG CAPSULE PO (17:31)
== END 2022-03-14 18:13 | disposition home or self-care (01) ==
PROVIDERS: Emergency Provider Emergency Medicine; PCP Physician Assistant
DX: F10.139 Alcohol abuse with withdrawal, unspecified (principal); Z20.822 Contact with and (suspected) exposure to COVID-19
CPT/HCPCS: 36415; 80053; 80320; 83690; 83735; 84146; 85025; 87635; 93005; 96361; 96374; 99284; C9803; J2560